=== PATIENT | male | born 1960 | race Caucasian/White ===

== ENCOUNTER 2018-04-01 19:07 | Emergency (ER) | payer OTHER | END 2018-04-01 19:59 | disposition home or self-care (01) | LOC: EDH 19:07 | DX: R00.1 Bradycardia, unspecified (principal); F25.9 Schizoaffective disorder, unspecified; Z72.0 Tobacco use | CPT/HCPCS: 93005 ==

== ENCOUNTER 2018-05-30 11:41 | Emergency (ER) | payer OTHER ==
[2018-05-30] MEDS ORDERED: SODIUM CHLORIDE 0.9% 1000ML 1,000 ML IV ONE (12:22)
[2018-05-30 12:24] LABS: BASOPHILS % (AUTO) 0.6 % (0.0-5.0); EOSINOPHILS % (AUTO) 4.7 % (0.0-8.0); HEMATOCRIT 41.7 % (42-54); MEAN CORPUSCULAR HEMOGLOBIN 30.7 pg (27.0-33.0); MEAN CORPUSCULAR HGB CONC 33.7 g/dL (32.0-36.0); MEAN CORPUSCULAR VOLUME 91.2 fL (79-99); MONOCYTES % (AUTO) 13.1 % (3.0-13.0); NEUTROPHILS % (AUTO) 69.6 % (40.0-77.0); PLATELET COUNT (AUTO) 251 K/uL (130-400); RED BLOOD CELL COUNT(AUTO) 4.57 MIL/uL (4.50-6.20); RED CELL DISTRIBUTION WIDTH 14.1 % (11.0-15.5); WHITE BLOOD COUNT (AUTO) 13.3 K/uL (4.8-10.8)
[2018-05-30 12:45] LABS: POTASSIUM 3.8 mmol/L (3.5-5.1)
[2018-05-30 12:50] LABS: ALBUMIN 3.7 g/dL (3.5-5.0); BILIRUBIN,DIRECT 0.1 mg/dL (0.0-0.3); BILIRUBIN,TOTAL 0.3 mg/dL (0.2-1.0); TOTAL PROTEIN, SERUM 7.4 g/dL (6.0-8.3)
[2018-05-30 13:10] LABS: AMPHET/METH SCREEN,URINE NEGATIVE (NEGATIVE); BARBITURATE SCREEN, URINE NEGATIVE (NEGATIVE); BENZODIAZEPINES SCREEN,URINE POSITIVE (NEGATIVE); CANNABINOID SCREEN,URINE NEGATIVE (NEGATIVE); COCAINE SCREEN,URINE NEGATIVE (NEGATIVE); OPIATE SCREEN,URINE NEGATIVE (NEGATIVE); PHENCYCLIDINE SCREEN,URINE NEGATIVE (NEGATIVE)
== END 2018-05-30 14:48 | disposition home or self-care (01) ==
LOC: EDH 11:41
DX: K52.9 Noninfective gastroenteritis and colitis, unspecified (principal); E78.5 Hyperlipidemia, unspecified; I10 Essential (primary) hypertension; J44.9 Chronic obstructive pulmonary disease, unspecified; Z87.891 Personal history of nicotine dependence
CPT/HCPCS: 36415; 74021; 80048; 80076; 80305; 85025; 96360; 99284; J7030

== ENCOUNTER → 2018-11-16 | Outpatient (CLI) | payer OTHER | END | disposition home or self-care (01) | LOC: RAH 08:55 | PROVIDERS: ATTEND Internal Medicine Cardiovascular Disease | DX: I51.7 Cardiomegaly (principal) | CPT/HCPCS: 93306 ==

== ENCOUNTER 2018-12-08 11:23 | Emergency (ER) | payer OTHER ==
[2018-12-08 11:49] LABS: APPEARANCE,URINE Clear (CLEAR); BILIRUBIN,URINE Negative (NEGATIVE); COLOR,URINE Yellow (YELLOW); GLUCOSE, URINE (UA) Negative (NEGATIVE); KETONES,URINE Negative (NEGATIVE); LEUKOCYTE ESTERASE ,URINE Negative (NEGATIVE); NITRATE,URINE Negative (NEGATIVE); OCCULT BLOOD,URINE Negative (NEGATIVE); PH,URINE 5.5 (5.0-8.0); PROTEIN,URINE Negative (NEGATIVE)
[2018-12-08 11:56] LABS: AMPHET/METH SCREEN,URINE NEGATIVE (NEGATIVE); BARBITURATE SCREEN, URINE NEGATIVE (NEGATIVE); BENZODIAZEPINES SCREEN,URINE NEGATIVE (NEGATIVE); CANNABINOID SCREEN,URINE NEGATIVE (NEGATIVE); COCAINE SCREEN,URINE NEGATIVE (NEGATIVE); OPIATE SCREEN,URINE NEGATIVE (NEGATIVE); PHENCYCLIDINE SCREEN,URINE NEGATIVE (NEGATIVE)
[2018-12-08 12:19] LABS: CARBON DIOXIDE 29 mmol/L (21-32); CHLORIDE 99 mmol/L (101-111); CREATININE 0.9 mg/dL (0.5-1.5); GLOMERULAR FILTR. RATE CALC 92 mL/min (>60); GLUCOSE,RANDOM 158 mg/dL (70-105); POTASSIUM 3.9 mmol/L (3.5-5.1); SODIUM SERUM 140 mmol/L (136-145); UREA NITROGEN, BLOOD 17 mg/dL (7-18)
[2018-12-08 12:23] LABS: ALANINE AMINOTRANSFERASE 70 U/L (12-78); ALBUMIN 3.5 g/dL (3.5-5.0); ALCOHOL, BLOOD 63 mg/dL (0-10); ASPARTATE AMINOTRANSFERASE 79 U/L (10-37); BILIRUBIN,DIRECT 0.2 mg/dL (0.0-0.3); BILIRUBIN,TOTAL 0.4 mg/dL (0.2-1.0); CREATINE KINASE, TOTAL 111 U/L (21-232); SALICYLATE 4.9 mg/dL (2.8-20.0); TOTAL PROTEIN, SERUM 7.2 g/dL (6.0-8.3)
[2018-12-08] MEDS ORDERED: LORAZEPAM 2 MG/ML 1 ML VIAL ONE (12:35)
[2018-12-08 12:36] LABS: BASOPHILS % (AUTO) 0.6 % (0.0-5.0); EOSINOPHILS % (AUTO) 2.3 % (0.0-8.0); HEMATOCRIT 37.8 % (42-54); LYMPHOCYTES % (AUTO) 14.7 % (21.0-51.0); MEAN CORPUSCULAR HGB CONC 33.6 g/dL (32.0-36.0); MEAN CORPUSCULAR VOLUME 89.5 fL (79-99); MONOCYTES % (AUTO) 12.2 % (3.0-13.0); NEUTROPHILS % (AUTO) 70.2 % (40.0-77.0); PLATELET COUNT (AUTO) 200 K/uL (130-400); RED BLOOD CELL COUNT(AUTO) 4.22 MIL/uL (4.50-6.20); RED CELL DISTRIBUTION WIDTH 12.2 % (11.0-15.5); WHITE BLOOD COUNT (AUTO) 8.5 K/uL (4.8-10.8)
[2018-12-08 12:45] LABS: MAGNESIUM 1.7 mg/dL (1.80-2.40)
[2018-12-08 12:50] LABS: ACETAMINOPHEN < 1 mcg/mL (10-29)
[2018-12-08] MEDS ORDERED: IPRATROPIUM/ALBUTEROL SULFATE 3 ML SOLUTION IH ONE (15:35)
== END 2018-12-08 15:53 | disposition home or self-care (01) ==
LOC: EDH 11:23
DX: F10.239 Alcohol dependence with withdrawal, unspecified (principal); J44.9 Chronic obstructive pulmonary disease, unspecified; E78.5 Hyperlipidemia, unspecified; I10 Essential (primary) hypertension; Z98.890 Other specified postprocedural states; Z72.0 Tobacco use
CPT/HCPCS: 36415; 71045; 80048; 80076; 80305; 81003; 82140; 82550; 83735; 84484; 85025; 93005; 94640; 96374; 99285; G0480 ×2; G0481; J2060

== ENCOUNTER 2019-06-23 17:11 | Emergency (ER) | payer OTHER ==
[~2019-06-23 17:11] MED LIST: AEC81 PO; ALBU0.63 IH; AMOX1TAB16 PO; BUDE10.22 IH; CYAN10007 IM; FOLI0.4T2 PO; GUAI400T79 PO; HYDR-3421 PO; LATA7.5D OP; LEVO25TA54 PO; MULT-1278 PO; NICO-776 TD; PARO40TA72 PO; PRED10B PO; QUET400T12 PO; SILD20TA14 PO; SIMV-46 PO; TAMS-1 PO
== END 2019-06-23 18:06 | disposition home or self-care (01) ==
LOC: EDH 17:11
DX: L50.9 Urticaria, unspecified (principal); J44.9 Chronic obstructive pulmonary disease, unspecified; E78.5 Hyperlipidemia, unspecified; I10 Essential (primary) hypertension; Z72.0 Tobacco use
CPT/HCPCS: 99281

== ENCOUNTER 2019-10-16 21:16 | Inpatient (IN) | payer OTHER ==
[~2019-10-16] VITALS: Ht 177.8 cm; Wt 111.2 kg
[~2019-10-16 21:16] MED LIST changes: -GUAI400T79 PO; +GUAI400T94 PO
[2019-10-16 22:06] LABS: BASOPHILS % (AUTO) 0.7 % (0.0-5.0); EOSINOPHILS % (AUTO) 2.6 % (0.0-8.0); LYMPHOCYTES % (AUTO) 18.7 % (21.0-51.0); MEAN CORPUSCULAR HEMOGLOBIN 30.5 pg (27.0-33.0); MEAN CORPUSCULAR HGB CONC 33.5 g/dL (32.0-36.0); MEAN CORPUSCULAR VOLUME 90.9 fL (79-99); MONOCYTES % (AUTO) 15.3 % (3.0-13.0); PLATELET COUNT (AUTO) 266 K/uL (130-400); RED BLOOD CELL COUNT(AUTO) 4.07 MIL/uL (4.50-6.20); RED CELL DISTRIBUTION WIDTH 13.2 % (11.0-15.5); WHITE BLOOD COUNT (AUTO) 13.8 K/uL (4.8-10.8)
[2019-10-16 22:14] LABS: CREATININE 0.8 mg/dL (0.5-1.5); POTASSIUM 3.8 mmol/L (3.5-5.1)
[2019-10-16 22:19] LABS: ALBUMIN 3.2 g/dL (3.5-5.0); BILIRUBIN,TOTAL 0.3 mg/dL (0.2-1.0); TOTAL PROTEIN, SERUM 7.6 g/dL (6.0-8.3)
[2019-10-16 22:30] LABS: RAPID GROUP A STREP NEGATIVE (NEGATIVE)
[2019-10-16 23:07] LABS: APPEARANCE,URINE Clear (CLEAR); BILIRUBIN,URINE Negative (NEGATIVE); COLOR,URINE Yellow (YELLOW); GLUCOSE, URINE (UA) Negative (NEGATIVE); KETONES,URINE Negative (NEGATIVE); LEUKOCYTE ESTERASE ,URINE Negative (NEGATIVE); NITRATE,URINE Negative (NEGATIVE); OCCULT BLOOD,URINE Negative (NEGATIVE); PH,URINE 5.5 (5.0-8.0); PROTEIN,URINE Negative (NEGATIVE)
[2019-10-16] MEDS ORDERED: ZOSYN 3.375GM+NS 50ML 50 ML IV ONE (23:23)
[2019-10-16] MEDS ORDERED: VANCOMYCIN 1GM+NS 250ML 250 ML IV ONE (23:23)
[2019-10-16 23:26] LABS: ERYTHROCYTE SEDIMENTATION RATE 40 MM/HR (0-20)
[2019-10-16] MEDS ORDERED: ALBUTEROL SULFATE 0.083% 2.5 MG/3 ML INH IH ONE (23:41)
[2019-10-16] MEDS ORDERED: IPRATROPIUM 0.5 MG/2.5 ML INH IH ONE (23:41)
[2019-10-16] MEDS ORDERED: ACETAMINOPHEN 325 MG TAB PO PRN ×2 (23:45)
[2019-10-16] MEDS ORDERED: ONDANSETRON HCL 4 MG/2 ML VIAL IV PRN (23:45)
[2019-10-16] MEDS ORDERED: VANCOMYCIN PROTOCOL PER PHARMACY IV SCH (23:45)
[2019-10-17 00:14] LABS: AMPHET/METH SCREEN,URINE POSITIVE (NEGATIVE); BARBITURATE SCREEN, URINE NEGATIVE (NEGATIVE); BENZODIAZEPINES SCREEN,URINE NEGATIVE (NEGATIVE); CANNABINOID SCREEN,URINE NEGATIVE (NEGATIVE); COCAINE SCREEN,URINE POSITIVE (NEGATIVE); OPIATE SCREEN,URINE NEGATIVE (NEGATIVE); PHENCYCLIDINE SCREEN,URINE NEGATIVE (NEGATIVE)
[2019-10-17] MEDS ORDERED: KETOROLAC TROMETHAMINE 15MG/ML ONE (00:31)
--- NOTE | 2019-10-17 03:05 | NUR ---
PT TRANSFERRED FROM ER WITH ROMEO LOERA. VIA STRETCHER. PT AAOx3. PT WALKED TO BED ROOM 227. DENIES PAIN. PT WEARS EYEGLASSES. BED TO LOWEST LEVEL, RAILS UP x2. CALL LIGHT WITHIN REACH. LEFT HAND IV 22G. RIGHT FOREARM TO HAND IS RED AND SWOLLEN, WARM TO TOUCH, FOREARM PRESENTS WITH AN AREA OF BLISTERING, SAME AREA WHERE (METH) NEEDLE WAS INJECTED AND PT STATES NEEDLE IS STUCK IN SKIN. UPPER CHEST, ABDOMEN, UPPER BACK PRESENTS WITH RED SKIN SORES.
--- NOTE | 2019-10-17 03:30 | NUR ---
PT IS ASLEEP. ATTEMPTED MULTIPLE TIMES TO WAKE UP PT FOR ADMISSION QUESTIONS. PT DOES NOT OPEN HIS EYES BUT DOES MAKE MUMBLING SOUNDS. WORDS ARE INCOMPREHENSIBLE.
[2019-10-17] MEDS: INSULIN HUMULIN R 100 UNIT/ML 3ML SQ SCH ×4 (06:28→21:00)
[2019-10-17 07:11] LABS: BASOPHILS % (AUTO) 0.6 % (0.0-5.0); EOSINOPHILS % (AUTO) 3.2 % (0.0-8.0); HEMATOCRIT 36.8 % (42-54); LYMPHOCYTES % (AUTO) 13.4 % (21.0-51.0); MEAN CORPUSCULAR HEMOGLOBIN 30.6 pg (27.0-33.0); MEAN CORPUSCULAR HGB CONC 32.9 g/dL (32.0-36.0); MEAN CORPUSCULAR VOLUME 92.9 fL (79-99); MONOCYTES % (AUTO) 13.2 % (3.0-13.0); NEUTROPHILS % (AUTO) 68.8 % (40.0-77.0); PLATELET COUNT (AUTO) 233 K/uL (130-400); RED BLOOD CELL COUNT(AUTO) 3.96 MIL/uL (4.50-6.20); RED CELL DISTRIBUTION WIDTH 13.5 % (11.0-15.5); WHITE BLOOD COUNT (AUTO) 10.1 K/uL (4.8-10.8)
[2019-10-17 07:22] LABS: CREATININE 0.9 mg/dL (0.5-1.5); POTASSIUM 3.4 mmol/L (3.5-5.1)
[2019-10-17 08:30] VITALS: BP 120/78
[2019-10-17] MEDS: ZOSYN 3.375GM+NS 50ML 50 ML IV SCH ×2 (09:13→16:17)
[2019-10-17] MEDS: FAMOTIDINE 20MG TAB 20 MG TAB PO SCH ×2 (09:13→21:00)
[2019-10-17] MEDS: ENOXAPARIN SODIUM 40 MG/0.4 ML SYRINGE SQ SCH (09:15)
--- NOTE | 2019-10-17 10:39 | NUR ---
DR. CRUZ MADE AWARE OF PENDING CONSULT
[2019-10-17] MEDS ORDERED: PHARMACY COMMUNICATION MISC SCH (11:30)
[2019-10-17 12:43] VITALS: BP 118/75
[2019-10-17] MEDS ORDERED: COMPOUND IV REFRIGERATED 1 EACH IVSOLN MISC PRN (12:45)
[2019-10-17] MEDS ORDERED: VANCOMYCIN 2 GM in SODIUM CHLORIDE 0.9% 500ML 500 ML IV ONE (13:00)
[2019-10-17] MEDS: KETOROLAC TROMETHAMINE 15MG/ML IV PRN (14:43)
--- NOTE | 2019-10-17 15:30 | NUR ---
YA PLAN PATIENT IN COVID UNIT NOT ABLE TO SEE PATIENT. CALLED NO ANSWER ON PHONE. KEREN WILL CONTINUE TO FOLLOW. Addendum: 10/17/19 at 1531 by VALENTINA RUIZ RN CM Amended: Links added.
[2019-10-17 16:35] VITALS: BP 123/82
[2019-10-17 19:43] VITALS: BP 120/79
--- NOTE | 2019-10-17 20:35 | NUR ---
NEW ORDER SPOKE TO BIANCA OSBORNE ORDERED POTASSIUM PROTOCOL. MEDS WERE RECONCILED BY ROMEO GAN. DYLON WILL CONTINUE NECESSARY MEDICATIONS FOR PT.
[2019-10-17] MEDS ORDERED: ALBUTEROL SULFATE IH PRN (20:45)
[2019-10-17] MEDS: SIMVASTATIN 20 MG TABLET PO SCH (21:00)
[2019-10-17] MEDS: SYMBICORT 80-4.5 MCG INHALER IH SCH (21:00)
[2019-10-17] MEDS: LATANOPROST 2.5 ML DROPS OU SCH (21:00)
[2019-10-17] MEDS: QUETIAPINE FUMARATE 100 MG TAB PO SCH (21:00)
[2019-10-17] MEDS ORDERED: POTASSIUM CHLORIDE 20MEQ/100ML 100 ML IV PRN (21:30)
[2019-10-17] MEDS ORDERED: POTASSIUM CHLORIDE 20 MEQ ERTAB PO PRN (21:30)
[2019-10-17] MEDS ORDERED: LIDOCAINE HCL-MPF 1% 2ML VIAL IJ PRN (21:30)
--- NOTE | 2019-10-17 21:30 | NUR ---
NOTIFIED BIANCA OSBORNE PT STATING HE ALREADY TOOK HIS OWN HOME MEDS. PT IS UPSET AND YELLING THAT NURSES KEPT LAUGHING ALL DAY AND KEPT HIM AWAKE. REQUEST TO SHOWER. PT IS WALKING AROUND ROOM BUT WAS NOTICED TO HAVE UNSTEADY GAIT. PT STATES HE FEELS DIZZY BECAUSE OF HIS MEDICATIONS THAT HE TOOK. PT WILL NOT SHOWER D/T NOT BEING SAFE FOR HIM, PT AGREED AND LAID BACK INTO BED. PT STATES HE JUST WANTS TO SLEEP SINCE NOBODY HAS LET HIM SLEEP ALL DAY OR LAST NIGHT. PT MOODS CHANGE QUICKLY FROM BEING UPSET TO BEING POLITE. VINH PCP, WILL RETAKE NEW VITALS FOR PT.
--- NOTE | 2019-10-17 21:35 | NUR ---
VITALS BP114/71 O295% AT ROOM AIR. PULSE 75 PT IS LAYING IN BED WITH EYES CLOSED. STATED BY VINH,PCP PT IS TRYING TO TALK BUT IS NOT MAKING SENSE. HIS WORDS ARE NOT CLEAR AND IS MUMBLING HIS WORDS.
[2019-10-17] MEDS: POTASSIUM CHLORIDE 10% ELIXIR 20 MEQ/15 ML UDCUP PO PRN (23:20)
[2019-10-17] MEDS: VANCOMYCIN 1.5 GM in SODIUM CHLORIDE 0.9% 250 ML IV SCH (23:23)
[2019-10-17 23:36] VITALS: BP 119/75
[2019-10-18] MEDS: ZOSYN 3.375GM+NS 50ML 50 ML IV SCH ×3 (01:54→17:15)
[2019-10-18] MEDS: POTASSIUM CHLORIDE 10% ELIXIR 20 MEQ/15 ML UDCUP PO PRN (01:54)
[2019-10-18 03:46] VITALS: BP 121/75
[2019-10-18] MEDS: INSULIN HUMULIN R 100 UNIT/ML 3ML SQ SCH ×4 (07:30→19:59)
[2019-10-18] MEDS: ENOXAPARIN SODIUM 40 MG/0.4 ML SYRINGE SQ SCH (08:30)
[2019-10-18] MEDS: FOLIC ACID 1 MG TABLET PO SCH (08:31)
[2019-10-18] MEDS: MULTIVITAMIN WITH MINERALS TABLET PO SCH (08:31)
[2019-10-18] MEDS: NICOTINE 21 MG/ 24 HR PATCH TD SCH (08:31)
[2019-10-18] MEDS: TAMSULOSIN HCL 0.4 MG CAP.ER.24H PO SCH (08:31)
[2019-10-18] MEDS: FAMOTIDINE 20MG TAB 20 MG TAB PO SCH ×2 (08:31→20:05)
[2019-10-18] MEDS: ASPIRIN 81 MG EC TAB PO SCH (08:31)
[2019-10-18] MEDS: SYMBICORT 80-4.5 MCG INHALER IH SCH ×2 (08:32→20:06)
[2019-10-18] MEDS: PAROXETINE HCL 20 MG TABLET PO SCH (08:32)
[2019-10-18 08:51] VITALS: BP 129/85
[2019-10-18 12:21] LABS: BASOPHILS % (AUTO) 0.5 % (0.0-5.0); EOSINOPHILS % (AUTO) 4.1 % (0.0-8.0); MEAN CORPUSCULAR HEMOGLOBIN 30.4 pg (27.0-33.0); MEAN CORPUSCULAR HGB CONC 32.4 g/dL (32.0-36.0); MEAN CORPUSCULAR VOLUME 93.7 fL (79-99); MONOCYTES % (AUTO) 11.3 % (3.0-13.0); NEUTROPHILS % (AUTO) 71.3 % (40.0-77.0); PLATELET COUNT (AUTO) 272 K/uL (130-400); RED BLOOD CELL COUNT(AUTO) 3.95 MIL/uL (4.50-6.20); RED CELL DISTRIBUTION WIDTH 13.3 % (11.0-15.5); WHITE BLOOD COUNT (AUTO) 9.8 K/uL (4.8-10.8)
[2019-10-18] MEDS: VANCOMYCIN 1.5 GM in SODIUM CHLORIDE 0.9% 250 ML IV SCH (12:51)
[2019-10-18 13:23] LABS: ERYTHROCYTE SEDIMENTATION RATE 46 MM/HR (0-20)
[2019-10-18 13:27] VITALS: BP 146/89
--- NOTE | 2019-10-18 13:53 | NUR ---
DC PLAN CALLED PATIENT ROOM. PATIENT ANSWERED. PATIENT LIVES WITH SPOUSE. INDEPENDENT ABLE TO PERFORM ADL'S. PATIENT HAS NO SERVICES OR DME'S. FEELS SAFE TO RETURN HOME. WANTED TO LEAVE TODAY. ASKED PATIENT IF NEEDLE IN ARM HAD BEEN REMOVED SAID NO IT HAS NOT. WILL LIKELY NEED TO STAY FOR COVID RESULTS THEN REMOVAL OF FOREIGN OBJECT IN ARM. Addendum: 10/18/19 at 1355 by VALENTINA RUIZ RN CM Amended: Links added.
[2019-10-18 16:33] VITALS: BP 138/91
[2019-10-18] MEDS ORDERED: TEMAZEPAM 7.5 MG CAPSULE PO ONE (19:45)
[2019-10-18] MEDS: QUETIAPINE FUMARATE 100 MG TAB PO SCH (20:05)
[2019-10-18] MEDS: SIMVASTATIN 20 MG TABLET PO SCH (20:05)
[2019-10-18] MEDS: LATANOPROST 2.5 ML DROPS OU SCH (20:06)
[2019-10-18 20:27] VITALS: BP 135/83
[2019-10-18 23:30] VITALS: BP 128/77
[2019-10-19] VITALS (7 sets, daily range): BP systolic 122–150; BP diastolic 56–99
[2019-10-19] MEDS: ZOSYN 3.375GM+NS 50ML 50 ML IV SCH ×3 (00:35→20:45)
[2019-10-19] MEDS: VANCOMYCIN 1.5 GM in SODIUM CHLORIDE 0.9% 250 ML IV SCH ×3 (01:30→19:44)
[2019-10-19 05:35] LABS: BASOPHILS % (AUTO) 0.6 % (0.0-5.0); EOSINOPHILS % (AUTO) 4.6 % (0.0-8.0); HEMATOCRIT 37.2 % (42-54); LYMPHOCYTES % (AUTO) 16.3 % (21.0-51.0); MEAN CORPUSCULAR HEMOGLOBIN 30.3 pg (27.0-33.0); MEAN CORPUSCULAR HGB CONC 32.5 g/dL (32.0-36.0); MONOCYTES % (AUTO) 11.4 % (3.0-13.0); NEUTROPHILS % (AUTO) 66.4 % (40.0-77.0); PLATELET COUNT (AUTO) 280 K/uL (130-400); RED CELL DISTRIBUTION WIDTH 13.3 % (11.0-15.5); WHITE BLOOD COUNT (AUTO) 10.7 K/uL (4.8-10.8)
[2019-10-19 06:13] LABS: BILIRUBIN,TOTAL 0.3 mg/dL (0.2-1.0); PHOSPHORUS 3.9 mg/dL (2.5-4.9); POTASSIUM 3.8 mmol/L (3.5-5.1); TOTAL PROTEIN, SERUM 7.3 g/dL (6.0-8.3)
[2019-10-19] MEDS: INSULIN HUMULIN R 100 UNIT/ML 3ML SQ SCH ×2 (06:25→20:52)
[2019-10-19 06:30] LABS: CRP QUANTITATIVE 47.7 mg/L (0.00-9.0)
[2019-10-19 06:52] LABS: ERYTHROCYTE SEDIMENTATION RATE 50 MM/HR (0-20)
[2019-10-19] MEDS: SYMBICORT 80-4.5 MCG INHALER IH SCH ×2 (09:00→21:35)
[2019-10-19] MEDS: ENOXAPARIN SODIUM 40 MG/0.4 ML SYRINGE SQ SCH (09:22)
[2019-10-19] MEDS: FOLIC ACID 1 MG TABLET PO SCH (09:23)
[2019-10-19] MEDS: MULTIVITAMIN WITH MINERALS TABLET PO SCH (09:23)
[2019-10-19] MEDS: ASPIRIN 81 MG EC TAB PO SCH (09:23)
[2019-10-19] MEDS: NICOTINE 21 MG/ 24 HR PATCH TD SCH (09:23)
[2019-10-19] MEDS: FAMOTIDINE 20MG TAB 20 MG TAB PO SCH ×2 (09:23→20:42)
[2019-10-19] MEDS: TAMSULOSIN HCL 0.4 MG CAP.ER.24H PO SCH (09:23)
[2019-10-19] MEDS: PAROXETINE HCL 20 MG TABLET PO SCH (09:23)
--- NOTE | 2019-10-19 13:17 | NUR ---
DC PLAN SPOKE TO DR. VILLAR REGARDING [facility]. SAID TO CONSULT DR. SHAY TO SEE LENGTH OF NEED FOR ABX. PATIENT WORRIED ABOUT . STILL PENDING COVID RESULTS AND DR. CRUZ TO REMOVE NEEDLE FROM ARM. Addendum: 10/19/19 at 1320 by VALENTINA RUIZ RN CM Amended: Links added.
[2019-10-19] MEDS ORDERED: DIPH,PERTUSS(ACELL),TET VAC/PF 0.5 ML VIAL IM ONE (14:15)
[2019-10-19 16:03] LABS: INR 0.92 (0.85-1.15); PARTIAL THROMBOPLASTIN TIME 28.5 SEC (26.3-35.5)
[2019-10-19] MEDS: SIMVASTATIN 20 MG TABLET PO SCH (20:42)
[2019-10-19] MEDS: QUETIAPINE FUMARATE 100 MG TAB PO SCH (20:42)
[2019-10-19] MEDS ORDERED: TEMAZEPAM 7.5 MG CAPSULE PO ONE ×2 (21:30)
[2019-10-19] MEDS: LATANOPROST 2.5 ML DROPS OU SCH (21:35)
[2019-10-20] MEDS: VANCOMYCIN 1.5 GM in SODIUM CHLORIDE 0.9% 250 ML IV SCH ×2 (01:00→12:13)
[2019-10-20 05:17] VITALS: BP 135/90
[2019-10-20] MEDS: INSULIN HUMULIN R 100 UNIT/ML 3ML SQ SCH ×4 (05:59→20:54)
[2019-10-20] MEDS: NICOTINE 21 MG/ 24 HR PATCH TD SCH (07:42)
[2019-10-20] MEDS: PAROXETINE HCL 20 MG TABLET PO SCH (07:42)
[2019-10-20] MEDS: FAMOTIDINE 20MG TAB 20 MG TAB PO SCH ×2 (07:43→20:33)
[2019-10-20] MEDS: FOLIC ACID 1 MG TABLET PO SCH (07:43)
[2019-10-20] MEDS: ENOXAPARIN SODIUM 40 MG/0.4 ML SYRINGE SQ SCH (07:43)
[2019-10-20] MEDS: TAMSULOSIN HCL 0.4 MG CAP.ER.24H PO SCH (07:43)
[2019-10-20] MEDS: MULTIVITAMIN WITH MINERALS TABLET PO SCH (07:43)
[2019-10-20] MEDS: ASPIRIN 81 MG EC TAB PO SCH (07:43)
[2019-10-20] MEDS: SYMBICORT 80-4.5 MCG INHALER IH SCH ×2 (07:44→20:33)
[2019-10-20] MEDS: ZOSYN 3.375GM+NS 50ML 50 ML IV SCH ×2 (07:44→15:39)
[2019-10-20 08:00] VITALS: BP 116/79
[2019-10-20 11:51] VITALS: BP 121/57
[2019-10-20] MEDS: KETOROLAC TROMETHAMINE 15MG/ML IV PRN (13:31)
--- NOTE | 2019-10-20 14:02 | NUR ---
DC PLAN SPOKE TO PATIENT SEVERAL TIMES. HE HAS BEEN GOING BACK AND FORTH REGARDING DC PLAN. AT 1350 ON 10/20/2019 PATIENT ASKED TO SPEAK TO CM SAID NO TO [facility]. WANTS TO TRY TO PO ABX AT HOME. SAYS HE HAS TO SEE AND GET LOAN TO PAY BILLS. SAYS HE HAS BEEN TO [facility] BEFORE. WILL KEEP AN EYE OUT ON HIS ARM AND FOLLOW UP WITH MD IF IT LOOKS WORSE. 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 DID NOT APPEAR READY TO STOP. SAID HE IS THINKING ABOUT IT. Addendum: 10/20/19 at 1404 by VALENTINA RUIZ RN CM Amended: Links added.
--- NOTE | 2019-10-20 14:20 | NUR ---
CALLED DR. LOPEZ' OFFICE FOR NEW CONSULT. SPOKE WITH KINSEY. AWAITING 'S CALLBACK.
[2019-10-20 16:00] VITALS: BP 138/89
--- NOTE | 2019-10-20 17:37 | NUR ---
DR. LOPEZ IS HERE TO SEE PATIENT.
[2019-10-20] MEDS ORDERED: TEMAZEPAM 7.5 MG CAPSULE PO PRN (17:45)
[2019-10-20 20:25] VITALS: BP 144/97
[2019-10-20] MEDS: LATANOPROST 2.5 ML DROPS OU SCH (20:27)
[2019-10-20] MEDS: CHLORDIAZEPOXIDE HCL 25 MG CAP PO SCH (20:32)
[2019-10-20] MEDS: SIMVASTATIN 20 MG TABLET PO SCH (20:33)
[2019-10-20] MEDS: TEMAZEPAM 15 MG CAPSULE PO PRN (20:33)
[2019-10-20] MEDS: QUETIAPINE FUMARATE 100 MG TAB PO SCH (20:33)
--- NOTE | 2019-10-20 23:55 | NUR ---
patients covid result came back negative, will transfer to room 314 med surg
[2019-10-21] VITALS (7 sets, daily range): BP systolic 112–160; BP diastolic 64–94
[2019-10-21] MEDS: ZOSYN 3.375GM+NS 50ML 50 ML IV SCH ×3 (00:18→16:22)
--- NOTE | 2019-10-21 00:20 | NUR ---
transferred to [facility], pt is stable no complaints of beign in distress or in any forms of pain.
[2019-10-21] MEDS: KETOROLAC TROMETHAMINE 15MG/ML IV PRN ×3 (00:45→16:19)
[2019-10-21] MEDS: VANCOMYCIN 1.5 GM in SODIUM CHLORIDE 0.9% 250 ML IV SCH ×2 (01:21→12:54)
[2019-10-21 05:03] LABS: BASOPHILS % (AUTO) 0.7 % (0.0-5.0); EOSINOPHILS % (AUTO) 3.8 % (0.0-8.0); HEMATOCRIT 36.1 % (42-54); LYMPHOCYTES % (AUTO) 17.8 % (21.0-51.0); MEAN CORPUSCULAR HEMOGLOBIN 29.8 pg (27.0-33.0); MEAN CORPUSCULAR HGB CONC 32.4 g/dL (32.0-36.0); MEAN CORPUSCULAR VOLUME 91.9 fL (79-99); PLATELET COUNT (AUTO) 280 K/uL (130-400); RED BLOOD CELL COUNT(AUTO) 3.93 MIL/uL (4.50-6.20); RED CELL DISTRIBUTION WIDTH 12.9 % (11.0-15.5); WHITE BLOOD COUNT (AUTO) 10.4 K/uL (4.8-10.8)
[2019-10-21 05:23] LABS: CARBON DIOXIDE 29 mmol/L (21-32); CHLORIDE 105 mmol/L (101-111); CREATININE 0.9 mg/dL (0.5-1.5); GLOMERULAR FILTR. RATE CALC 91 mL/min (>60); GLUCOSE,RANDOM 103 mg/dL (70-105); PHOSPHORUS 4.6 mg/dL (2.5-4.9); POTASSIUM 3.7 mmol/L (3.5-5.1); SODIUM SERUM 141 mmol/L (136-145); UREA NITROGEN, BLOOD 16 mg/dL (7-18)
[2019-10-21] MEDS: INSULIN HUMULIN R 100 UNIT/ML 3ML SQ SCH ×4 (07:30→21:00)
--- NOTE | 2019-10-21 07:50 | NUR ---
DR. CRUZ AWARE OF PT'S NEGATIVE FOR COVID NO NEW ORDERS GIVEN
[2019-10-21] MEDS: SYMBICORT 80-4.5 MCG INHALER IH SCH ×2 (09:00→20:05)
[2019-10-21] MEDS: NICOTINE 21 MG/ 24 HR PATCH TD SCH (09:45)
--- NOTE | 2019-10-21 12:30 | NUR ---
DR. CRUZ SPOKE TO DR. CRUZ VIA TELEPHONE REGARDING PATIENTS NPO STATUS. REPLIED OKAY TO FEED PATIENT BECAUSE NO PLAN FOR SURGERY TODAY.
[2019-10-21] MEDS: ENOXAPARIN SODIUM 40 MG/0.4 ML SYRINGE SQ SCH (12:47)
[2019-10-21] MEDS: TAMSULOSIN HCL 0.4 MG CAP.ER.24H PO SCH (12:55)
[2019-10-21] MEDS: ASPIRIN 81 MG EC TAB PO SCH (12:55)
[2019-10-21] MEDS: FAMOTIDINE 20MG TAB 20 MG TAB PO SCH ×2 (12:55→20:07)
[2019-10-21] MEDS: FOLIC ACID 1 MG TABLET PO SCH (12:55)
[2019-10-21] MEDS: MULTIVITAMIN WITH MINERALS TABLET PO SCH (12:55)
[2019-10-21] MEDS: PAROXETINE HCL 20 MG TABLET PO SCH (12:55)
[2019-10-21] MEDS: CHLORDIAZEPOXIDE HCL 25 MG CAP PO SCH ×2 (12:56→20:07)
--- NOTE | 2019-10-21 16:15 | NUR ---
DR. FELIX HERE TO SEE PATIENT. EVALUATED RUE. DR. FELIX TOLD PATIENT PLAN FOR POSSIBLE SURGICAL REMOVAL OF FOREIGN BODY LOCATED IN RIGHT FOREARM ON Wednesday10/23/2019. I ASKED DR. FELIX IF SHE WANTED ME TO ENTER ORDER TO SCHEDULE PROCEDURE FOR WEDNESDAY AND MD REPLIED NO, THAT SHE WOULD FOLLOW-UP TOMORROW WITH RESULTS OF RIGHT HAND US RESULTS FIRST.
[2019-10-21] MEDS: SIMVASTATIN 20 MG TABLET PO SCH (20:07)
[2019-10-21] MEDS: TEMAZEPAM 15 MG CAPSULE PO PRN (20:07)
[2019-10-21] MEDS: QUETIAPINE FUMARATE 100 MG TAB PO SCH (20:07)
[2019-10-21] MEDS: LATANOPROST 2.5 ML DROPS OU SCH (20:11)
[2019-10-22] MEDS: VANCOMYCIN 1.5 GM in SODIUM CHLORIDE 0.9% 250 ML IV SCH ×2 (01:10→13:09)
[2019-10-22] MEDS: ZOSYN 3.375GM+NS 50ML 50 ML IV SCH ×3 (01:10→15:32)
[2019-10-22 03:00] VITALS: BP 113/70
[2019-10-22] MEDS: INSULIN HUMULIN R 100 UNIT/ML 3ML SQ SCH ×4 (05:55→20:17)
[2019-10-22 07:17] VITALS: BP 116/73
[2019-10-22] MEDS: NICOTINE 21 MG/ 24 HR PATCH TD SCH (07:55)
[2019-10-22] MEDS: MULTIVITAMIN WITH MINERALS TABLET PO SCH (07:55)
[2019-10-22] MEDS: TAMSULOSIN HCL 0.4 MG CAP.ER.24H PO SCH (07:56)
[2019-10-22] MEDS: CHLORDIAZEPOXIDE HCL 25 MG CAP PO SCH ×2 (07:56→20:24)
[2019-10-22] MEDS: ASPIRIN 81 MG EC TAB PO SCH (07:56)
[2019-10-22] MEDS: FAMOTIDINE 20MG TAB 20 MG TAB PO SCH ×2 (07:56→20:21)
[2019-10-22] MEDS: PAROXETINE HCL 20 MG TABLET PO SCH (07:56)
[2019-10-22] MEDS: FOLIC ACID 1 MG TABLET PO SCH (07:56)
[2019-10-22] MEDS: ENOXAPARIN SODIUM 40 MG/0.4 ML SYRINGE SQ SCH (07:57)
[2019-10-22] MEDS: KETOROLAC TROMETHAMINE 15MG/ML IV PRN ×2 (07:58→21:20)
[2019-10-22] MEDS: SYMBICORT 80-4.5 MCG INHALER IH SCH ×2 (09:00→20:28)
--- NOTE | 2019-10-22 10:00 | NUR ---
dr jason here to see patient; she discussed with patient taking him to surgery tomorrow to remove foreign object from right arm and he is in agreement, she gave me verbal orders for procedure; i have entered order for consent and faxed it to boiler house inspector amarjit and called her to make her aware; i have also entered a npo at [facility] order.
[2019-10-22 10:50] VITALS: BP 123/87
[2019-10-22] MEDS: GABAPENTIN 100 MG CAPSULE PO SCH ×2 (13:09→20:24)
[2019-10-22] MEDS: ACETAMINOPHEN 325 MG TAB PO PRN ×2 (13:10→20:24)
[2019-10-22] MEDS: LACTULOSE 20 GM/30 ML UDCUP PO PRN (14:51)
--- NOTE | 2019-10-22 15:16 | NUR ---
pt signed consent for surgery tomorrow and only question he had was aboiut what typeof anesthesia he would have; i told him anesthesiologist would see him tomorrow am prior to the surgery and go over with him his options.
[2019-10-22 15:49] VITALS: BP 138/97
[2019-10-22] MEDS: IPRATROPIUM/ALBUTEROL SULFATE 3 ML SOLUTION IH SCH ×2 (18:46→23:27)
[2019-10-22] MEDS: QUETIAPINE FUMARATE 100 MG TAB PO SCH (20:21)
[2019-10-22] MEDS: SIMVASTATIN 20 MG TABLET PO SCH (20:21)
[2019-10-22 20:22] VITALS: BP 121/83
[2019-10-22] MEDS: LATANOPROST 2.5 ML DROPS OU SCH (20:24)
[2019-10-22] MEDS: TEMAZEPAM 15 MG CAPSULE PO PRN (21:20)
[2019-10-22 23:56] VITALS: BP 99/62
[2019-10-23] VITALS (17 sets, daily range): BP systolic 107–131; BP diastolic 58–78
[2019-10-23] MEDS: ZOSYN 3.375GM+NS 50ML 50 ML IV SCH ×3 (01:31→18:11)
[2019-10-23] MEDS: VANCOMYCIN 1.5 GM in SODIUM CHLORIDE 0.9% 250 ML IV SCH ×2 (01:31→13:13)
[2019-10-23] MEDS: INSULIN HUMULIN R 100 UNIT/ML 3ML SQ SCH ×4 (06:04→20:33)
[2019-10-23] MEDS: IPRATROPIUM/ALBUTEROL SULFATE 3 ML SOLUTION IH SCH ×4 (06:26→23:17)
[2019-10-23] MEDS ORDERED: SODIUM CHLORIDE 0.9% 1000ML 1,000 ML IV ONE (08:22)
[2019-10-23] MEDS: FAMOTIDINE 20MG TAB 20 MG TAB PO SCH ×2 (09:00→20:35)
[2019-10-23] MEDS: ENOXAPARIN SODIUM 40 MG/0.4 ML SYRINGE SQ SCH (09:00)
[2019-10-23] MEDS: SYMBICORT 80-4.5 MCG INHALER IH SCH ×2 (09:00→20:36)
[2019-10-23] MEDS ORDERED: CHLORDIAZEPOXIDE HCL 25 MG CAP PO ONE (09:00)
[2019-10-23] MEDS ORDERED: MIDAZOLAM HCL 1 MG/ML 2ML VIAL ONE (09:02)
[2019-10-23] MEDS ORDERED: PROPOFOL 10 MG/ML 20ML VIAL IV ONE ×2 (09:02→09:56)
[2019-10-23] MEDS ORDERED: LIDOCAINE PF 2% 5ML ABBOJECT ONE (09:02)
[2019-10-23] MEDS ORDERED: FENTANYL CITRATE PF 50 MCG/1 ML 2ML VIAL ONE (09:17)
[2019-10-23] MEDS ORDERED: LIDOCAINE HCL 1% 20 ML VIAL ONE (09:25)
[2019-10-23] MEDS ORDERED: BUPIVACAINE/EPI/PF 0.5% 30ML VIAL IJ ONE (09:25)
[2019-10-23] MEDS ORDERED: CEFAZOLIN SODIUM 1 GM VIAL ONE (09:26)
[2019-10-23] MEDS: NICOTINE 21 MG/ 24 HR PATCH TD SCH (11:26)
[2019-10-23] MEDS: ASPIRIN 81 MG EC TAB PO SCH (11:27)
[2019-10-23] MEDS: FOLIC ACID 1 MG TABLET PO SCH (11:27)
[2019-10-23] MEDS: MULTIVITAMIN WITH MINERALS TABLET PO SCH (11:27)
[2019-10-23] MEDS: TAMSULOSIN HCL 0.4 MG CAP.ER.24H PO SCH (11:27)
[2019-10-23] MEDS: CHLORDIAZEPOXIDE HCL 25 MG CAP PO SCH ×2 (11:27→20:35)
[2019-10-23] MEDS: PAROXETINE HCL 20 MG TABLET PO SCH (11:27)
[2019-10-23] MEDS: KETOROLAC TROMETHAMINE 15MG/ML IV PRN (11:29)
[2019-10-23] MEDS: GABAPENTIN 100 MG CAPSULE PO SCH ×3 (11:44→20:35)
[2019-10-23] MEDS: HYDROMORPHONE 1 MG/1 ML AMP IVP PRN ×2 (12:03→18:21)
--- NOTE | 2019-10-23 16:20 | NUR ---
Nutrition Intervention: Nutrition screen based on LOS x 7 days. Pt. S/P Foreign body extraction right forearm/removal of foreign body(10/23/19). Pt. on Heart Healthy diet. Pt. reports eating <50% of his meals; states decreased appetite due to arm pain. Discussed nutritional supplementations with pt. and pt. agreed to try. Labs reviewed(BG 84, alb 3.0). SR-22, elastic. LBM: 10/22/2019, per pt. BMI: 35.2, Obesity Grade 2. Recommendations: 1) Rec. Chocolate Ensure BID with B'fast and dinner meals. 2) Continue to monitor pt's nutritional status. 3) Consult RD as nutrition concerns arise. Addendum: 10/23/19 at [address] Amended: Links added.
[2019-10-23] MEDS: LACTULOSE 20 GM/30 ML UDCUP PO PRN (20:33)
[2019-10-23] MEDS: QUETIAPINE FUMARATE 100 MG TAB PO SCH (20:34)
[2019-10-23] MEDS: LATANOPROST 2.5 ML DROPS OU SCH (20:35)
[2019-10-23] MEDS: SIMVASTATIN 20 MG TABLET PO SCH (20:35)
[2019-10-23] MEDS ORDERED: RENAL DOSE IV PRN (21:00)
[2019-10-23] MEDS: TEMAZEPAM 15 MG CAPSULE PO PRN (21:17)
[2019-10-24] MEDS: ZOSYN 3.375GM+NS 50ML 50 ML IV SCH ×2 (00:30→05:10)
[2019-10-24] MEDS: VANCOMYCIN 1.5 GM in SODIUM CHLORIDE 0.9% 250 ML IV SCH (00:32)
[2019-10-24] MEDS: HYDROMORPHONE 1 MG/1 ML AMP IVP PRN (00:48)
[2019-10-24 03:26] VITALS: BP_SYST 110; BP_SYST 135; BP_DIAS 74; BP_DIAS 81
[2019-10-24] MEDS: KETOROLAC TROMETHAMINE 15MG/ML IV PRN ×2 (05:10→12:40)
[2019-10-24] MEDS: INSULIN HUMULIN R 100 UNIT/ML 3ML SQ SCH ×2 (05:33→11:08)
[2019-10-24 06:12] LABS: BASOPHILS % (AUTO) 0.5 % (0.0-5.0); EOSINOPHILS % (AUTO) 3.4 % (0.0-8.0); HEMATOCRIT 34.4 % (42-54); LYMPHOCYTES % (AUTO) 18.5 % (21.0-51.0); MEAN CORPUSCULAR HEMOGLOBIN 29.5 pg (27.0-33.0); MEAN CORPUSCULAR VOLUME 92.2 fL (79-99); MONOCYTES % (AUTO) 11.3 % (3.0-13.0); NEUTROPHILS % (AUTO) 65.7 % (40.0-77.0); PLATELET COUNT (AUTO) 84 K/uL (130-400); RED BLOOD CELL COUNT(AUTO) 3.73 MIL/uL (4.50-6.20); RED CELL DISTRIBUTION WIDTH 13.1 % (11.0-15.5); WHITE BLOOD COUNT (AUTO) 8.7 K/uL (4.8-10.8)
--- NOTE | 2019-10-24 06:40 | NUR ---
paged hospitalist for patient's potassium of 5.8 this morning. pending call back.
[2019-10-24] MEDS: IPRATROPIUM/ALBUTEROL SULFATE 3 ML SOLUTION IH SCH ×2 (07:08→10:57)
[2019-10-24 07:16] LABS: CREATININE 1.1 mg/dL (0.5-1.5); POTASSIUM 3.8 mmol/L (3.5-5.1)
[2019-10-24 07:56] VITALS: BP 122/69
[2019-10-24] MEDS: FAMOTIDINE 20MG TAB 20 MG TAB PO SCH (09:42)
[2019-10-24] MEDS: ASPIRIN 81 MG EC TAB PO SCH (09:42)
[2019-10-24] MEDS: FOLIC ACID 1 MG TABLET PO SCH (09:43)
[2019-10-24] MEDS: CHLORDIAZEPOXIDE HCL 25 MG CAP PO SCH (09:43)
[2019-10-24] MEDS: MULTIVITAMIN WITH MINERALS TABLET PO SCH (09:43)
[2019-10-24] MEDS: PAROXETINE HCL 20 MG TABLET PO SCH (09:43)
[2019-10-24] MEDS: TAMSULOSIN HCL 0.4 MG CAP.ER.24H PO SCH (09:43)
[2019-10-24] MEDS: GABAPENTIN 100 MG CAPSULE PO SCH (09:43)
[2019-10-24] MEDS: NICOTINE 21 MG/ 24 HR PATCH TD SCH (09:44)
[2019-10-24 11:37] VITALS: BP 135/74
--- NOTE | 2019-10-24 13:48 | NUR ---
PICCLINE REMOVED WITHOUT DIFFICULTY , BLUE TIP INTACT. DRESSING PLACED WITH PRESSURE HELD FOR 15 MIN . NO SIGNS OF BLEEDING OR SWELLING. PATIENT TOLERATED WELL
--- NOTE | 2019-10-24 13:55 | NUR ---
DISCHARGE PATIENT GIVEN DISCHARGE INSTRUCTIONS VIA TEACH BACK. 5FR DOUBLE LUMEN PICC LINE DISCONTINUED BY ROMEO MORRISON. DRESSING TO RIGHT FOREARM CHANGED, INCISION SITES APPROXIMATED WITH 8 SANDY INTACT. REPORT ANY S/S OF INFECTION TO MD. PATIENT INSTRUCTED TO KEEP DRESSINGS CLEAN AND DRY AT ALL TIMES. INSTRUCTED REGARDING APPOINTMENTS WITH DR. SHAY AND DR. FELIX. PATIENT AWARE OF REQUESTING AUTHORIZATION FROM [facility]. PATIENT WILL NEED 150.00 CO-PAY FOR VISIT WITH DR. SHAY. RX GIVEN FOR CEFTIN 500MG PO BID AND DOXYCYCLINE 600MG PO BID X 10 DAYS. PATIENT STABLE AT THIS TIME. PATIENT WHEELED TO [facility] FOR DISCHARGE BY NIKOS VIDAL.
[2019-11-16] MEDS ORDERED: CYANOCOBALAMIN (VITAMIN B-12) 1000 MCG/ML 1ML VIAL IM SCH (09:00)
== END 2019-10-24 14:30 | disposition home or self-care (01) | DRG 580 ==
LOC: EDH 21:16 → EDHIP 23:34 → 2DH 10-17 03:06 → 3CH 10-21
PROVIDERS: ADMIT Internal Medicine; ATTEND Internal Medicine
PROC: 02HV33Z Insertion of Infusion Device into Superior Vena Cava, Percutaneous Approach (ICD-10-PCS; 2019-10-19)
PROC: B548ZZA Ultrasonography of Superior Vena Cava, Guidance (ICD-10-PCS; 2019-10-19)
PROC: 0KC90ZZ Extirpation of Matter from Right Lower Arm and Wrist Muscle, Open Approach (ICD-10-PCS; principal; 2019-10-23 09:15)
PROC: 3E0234Z Introduction of Serum, Toxoid and Vaccine into Muscle, Percutaneous Approach (ICD-10-PCS; 2019-10-23 09:15)
DX: S50.851A Superficial foreign body of right forearm, initial encounter (principal); L03.113 Cellulitis of right upper limb; E11.9 Type 2 diabetes mellitus without complications; E66.01 Morbid (severe) obesity due to excess calories; E78.5 Hyperlipidemia, unspecified; E87.6 Hypokalemia; F14.10 Cocaine abuse, uncomplicated; F15.10 Other stimulant abuse, uncomplicated; F25.9 Schizoaffective disorder, unspecified; I10 Essential (primary) hypertension; J44.9 Chronic obstructive pulmonary disease, unspecified; M19.90 Unspecified osteoarthritis, unspecified site; M65.9 Synovitis and tenosynovitis, unspecified; F10.20 Alcohol dependence, uncomplicated; M79.7 Fibromyalgia; Y90.9 Presence of alcohol in blood, level not specified; F17.210 Nicotine dependence, cigarettes, uncomplicated; Z20.828 Contact with and (suspected) exposure to other viral communicable diseases; Y93.89 Activity, other specified; Y92.89 Other specified places as the place of occurrence of the external cause; Y99.8 Other external cause status; Z68.35 Body mass index [BMI] 35.0-35.9, adult; Z79.899 Other long term (current) drug therapy; Z91.14 Patient's other noncompliance with medication regimen; Z86.19 Personal history of other infectious and parasitic diseases; Z88.8 Allergy status to other drugs, medicaments and biological substances; Z23 Encounter for immunization
CPT/HCPCS: 36415; 71045; 73090; 76882; 80048; 80053; 80202; 80305; 81003; 82948; 83735; 84100; 84132; 84145; 85025; 85610; 85651; 85730; 86140; 87040; 87635; 87804; 87880; 90715; 93971; 94640; 94664; A4606; G0378; G0480; J0690; J1170; J1650; J1885; J2001; J2250; J2543; J2704; J3010; J3370; J3490; J7030; J7040

== ENCOUNTER 2019-12-23 19:55 | Observation (INO) | payer OTHER ==
[~2019-12-23] VITALS: Ht 177.8 cm; Wt 113.9 kg
[~2019-12-23 19:55] MED LIST changes: -AMOX1TAB16 PO; -HYDR-3421 PO; -LATA7.5D OP; +LATA7.5D OU; -LEVO25TA54 PO; -PRED10B PO
[2019-12-23 20:36] LABS: APPEARANCE,URINE Clear (CLEAR); BILIRUBIN,URINE Negative (NEGATIVE); COLOR,URINE Yellow (YELLOW); GLUCOSE, URINE (UA) Negative (NEGATIVE); KETONES,URINE Negative (NEGATIVE); LEUKOCYTE ESTERASE ,URINE Trace (NEGATIVE); NITRATE,URINE Negative (NEGATIVE); OCCULT BLOOD,URINE Negative (NEGATIVE); PROTEIN,URINE Negative (NEGATIVE)
[2019-12-23 20:52] LABS: RBC,URINE 0-1 /HPF (0-1)
[2019-12-23 20:53] LABS: BACTERIA,URINE Rare /HPF (None Seen); SQUAMOUS EPITHELIAL CELL,UR Rare /HPF (0-2)
[2019-12-23] MEDS ORDERED: LORAZEPAM 2 MG/ML 1 ML VIAL ONE (21:02)
[2019-12-23 21:16] LABS: BASOPHILS % (AUTO) 0.5 % (0.0-5.0); HEMATOCRIT 39.9 % (42-54); LYMPHOCYTES % (AUTO) 20.9 % (21.0-51.0); MEAN CORPUSCULAR HEMOGLOBIN 30.3 pg (27.0-33.0); MEAN CORPUSCULAR HGB CONC 33.6 g/dL (32.0-36.0); MEAN CORPUSCULAR VOLUME 90.3 fL (79-99); MONOCYTES % (AUTO) 9.7 % (3.0-13.0); NEUTROPHILS % (AUTO) 66.5 % (40.0-77.0); PLATELET COUNT (AUTO) 298 K/uL (130-400); RED BLOOD CELL COUNT(AUTO) 4.42 MIL/uL (4.50-6.20); WHITE BLOOD COUNT (AUTO) 15.4 K/uL (4.8-10.8)
[2019-12-23 21:41] LABS: POTASSIUM 3.6 mmol/L (3.5-5.1)
[2019-12-23 21:46] LABS: ALBUMIN 3.9 g/dL (3.5-5.0); BILIRUBIN,TOTAL 0.3 mg/dL (0.2-1.0); TOTAL PROTEIN, SERUM 8.5 g/dL (6.0-8.3)
[2019-12-23] MEDS ORDERED: BISACODYL 10 MG SUPP.RECT RC ONE (23:25)
[2019-12-24] MEDS ORDERED: MORPHINE SULFATE 2 MG/ML 1ML SYG ONE (00:30)
[2019-12-24] MEDS ORDERED: ACETAMINOPHEN 325 MG TAB ONE (02:49)
[2019-12-24] MEDS ORDERED: SODIUM CHLORIDE 0.9% 1000ML 1,000 ML IV SCH ×2 (03:03→03:15)
[2019-12-24] MEDS ORDERED: NITROGLYCERIN 0.4 MG SL TAB SL PRN (03:15)
[2019-12-24] MEDS ORDERED: ACETAMINOPHEN 325 MG TAB PO PRN ×2 (03:15)
[2019-12-24] MEDS ORDERED: LACTULOSE 20 GM/30 ML UDCUP PO PRN (03:15)
[2019-12-24] MEDS ORDERED: IPRATROPIUM/ALBUTEROL SULFATE 3 ML SOLUTION IH PRN (03:15)
[2019-12-24] MEDS ORDERED: DIPHENHYDRAMINE HCL 25 MG CAPSULE PO PRN (03:15)
[2019-12-24] MEDS ORDERED: ONDANSETRON HCL 4 MG/2 ML VIAL IV PRN (03:15)
[2019-12-24 03:19] LABS: AMPHET/METH SCREEN,URINE NEGATIVE (NEGATIVE); BARBITURATE SCREEN, URINE NEGATIVE (NEGATIVE); BENZODIAZEPINES SCREEN,URINE NEGATIVE (NEGATIVE); CANNABINOID SCREEN,URINE NEGATIVE (NEGATIVE); COCAINE SCREEN,URINE POSITIVE (NEGATIVE); OPIATE SCREEN,URINE NEGATIVE (NEGATIVE); PHENCYCLIDINE SCREEN,URINE NEGATIVE (NEGATIVE)
[2019-12-24 04:15] LABS: MEAN CORPUSCULAR HEMOGLOBIN 30.3 pg (27.0-33.0); MEAN CORPUSCULAR HGB CONC 34.1 g/dL (32.0-36.0); MEAN CORPUSCULAR VOLUME 88.9 fL (79-99); PLATELET COUNT (AUTO) 277 K/uL (130-400); RED BLOOD CELL COUNT(AUTO) 4.16 MIL/uL (4.50-6.20); RED CELL DISTRIBUTION WIDTH 12.9 % (11.0-15.5); WHITE BLOOD COUNT (AUTO) 21.2 K/uL (4.8-10.8)
[2019-12-24 04:31] LABS: ALBUMIN 3.6 g/dL (3.5-5.0); BILIRUBIN,TOTAL 0.3 mg/dL (0.2-1.0); MAGNESIUM 2.2 mg/dL (1.80-2.40); POTASSIUM 3.6 mmol/L (3.5-5.1); TOTAL PROTEIN, SERUM 7.6 g/dL (6.0-8.3)
[2019-12-24] MEDS ORDERED: SODIUM CHLORIDE 0.9% 1000ML 1,000 ML IV ONE ×2 (05:49→17:45)
[2019-12-24] MEDS ORDERED: CEFTRIAXONE SODIUM 1 GM ONE (05:52)
[2019-12-24] MEDS ORDERED: CEFTRIAXONE SODIUM 1 GM IVP SCH (06:00)
[2019-12-24 07:37] LABS: EOSINOPHILS % (MANUAL) 1 % (1-6); LYMPHOCYTES % (MANUAL) 11 % (22-44); MAN.DIFF COMMENT-IMPRESSION MANUAL DIFFERENTIAL; MONOCYTES % (MANUAL) 6 % (2-9); PLATELET MORPHOLOGY COMMENT ADEQUATE; SEGMENTED NEUTROPHILS % 82 % (40-70)
[2019-12-24] MEDS ORDERED: FAMOTIDINE 20MG TAB 20 MG TAB PO SCH (09:00)
[2019-12-24] MEDS ORDERED: NICOTINE 21 MG/ 24 HR PATCH TD SCH (09:00)
[2019-12-24] MEDS ORDERED: ENOXAPARIN SODIUM 30 MG/0.3 ML SQ SCH (09:00)
[2019-12-24] MEDS ORDERED: FAMOTIDINE 20MG TAB 20 MG TAB ONE ×2 (09:52→22:42)
[2019-12-24] MEDS ORDERED: ENOXAPARIN SODIUM 30 MG/0.3 ML SQ ONE (09:54)
[2019-12-24] MEDS ORDERED: LACTULOSE 20 GM/30 ML UDCUP ONE (12:38)
[2019-12-24] MEDS ORDERED: ALBU90AE2 IH (14:53)
[2019-12-24] MEDS ORDERED: PROAIR (14:53)
[2019-12-24] MEDS ORDERED: DOCU100T PO (14:53)
[2019-12-24] MEDS ORDERED: LEVO25TA54 PO (14:53)
[2019-12-24] MEDS ORDERED: FOLIC ACID PO (14:53)
[2019-12-24] MEDS ORDERED: ASCO500C18 PO (15:09)
[2019-12-24] MEDS ORDERED: [UNRECOGNIZED DRUG - CODE] PO (15:11)
[2019-12-24] MEDS ORDERED: PYRIDOXINE (15:11)
--- NOTE | 2019-12-24 18:25 | NUR ---
INITIAL: Call placed to ADORE Sweet(spouse). Per Micki prior to admission pt lived w her. Pt is independent w ambulation and ADLs. He does not own any DMe or receive services. [facility] as [facility] do not have [facility]. Per Micki dcp is for home. CM to continue to follow and wait for Md recommendations. Addendum: 12/24/19 at 1826 by ROSA SALVADOR Amended: Links added. Addendum: 12/24/19 at 182 by ROSA SALVADOR (Correction) Pt remains in ED. Call placed to his cell phone. was able to speak w pt, he mentions that prior to admission pt lived w his spouse Micki. Pt is independent w ambulation and ADLs. He does not own any DMe or receive services. [facility] uses [facility] as they do not have a [facility]. Per pt dcp is for home.
[2019-12-25] MEDS ORDERED: CEFTRIAXONE SODIUM 1 GM ONE (06:20)
[2019-12-25] MEDS ORDERED: FAMOTIDINE 20MG TAB 20 MG TAB ONE ×2 (09:32→21:06)
[2019-12-25] MEDS ORDERED: SERT100T12 PO (09:51)
--- NOTE | 2019-12-25 12:58 | NUR ---
SPOKE TO PT VIA PHONE FOR DC PLANNING STATES INDEPENDENT AND ACTIVE STATES LIVES WITH SPOUSE OZIEL WHO IS DISABLED- SPOUSE HAS SHOWER CHAIR, HOME IS SAFE AND ACCESSIBLE; STATES NO CAR, TRANSPORT IS PROVIDED BY A MIXTURE OF FRIEND/FAMILY; NOT SURE WHO HE WILL CALL AT DISCHARGE, [facility]LL[facility] WITH [facility], [facility]" , [facility], AND SEES THEM REGULARLY, NO DC NEEDS EXPECTED Addendum: 12/25/19 at 1615 by BERENICE ROWE RN CM Amended: Links added.
[2019-12-26] MEDS ORDERED: SIMETHICONE 80 MG TAB.CHEW ONE (00:25)
[2019-12-26] MEDS ORDERED: CEFTRIAXONE SODIUM 1 GM ONE (05:19)
[2019-12-26 06:58] LABS: BASOPHILS % (AUTO) 0.5 % (0.0-5.0); EOSINOPHILS % (AUTO) 2.6 % (0.0-8.0); HEMATOCRIT 36.2 % (42-54); LYMPHOCYTES % (AUTO) 21.6 % (21.0-51.0); MEAN CORPUSCULAR HEMOGLOBIN 30.2 pg (27.0-33.0); MEAN CORPUSCULAR HGB CONC 33.1 g/dL (32.0-36.0); MEAN CORPUSCULAR VOLUME 91.2 fL (79-99); MONOCYTES % (AUTO) 10.4 % (3.0-13.0); NEUTROPHILS % (AUTO) 64.5 % (40.0-77.0); PLATELET COUNT (AUTO) 231 K/uL (130-400); RED BLOOD CELL COUNT(AUTO) 3.97 MIL/uL (4.50-6.20); RED CELL DISTRIBUTION WIDTH 13.1 % (11.0-15.5); WHITE BLOOD COUNT (AUTO) 10.4 K/uL (4.8-10.8)
[2019-12-26 07:22] LABS: CREATININE 0.8 mg/dL (0.5-1.5); POTASSIUM 3.6 mmol/L (3.5-5.1)
[2019-12-26] MEDS ORDERED: SODIUM CHLORIDE 0.9% 1000ML 1,000 ML IV ONE (07:44)
[2019-12-26] MEDS ORDERED: ENOXAPARIN SODIUM 30 MG/0.3 ML SQ ONE (07:46)
[2019-12-26] MEDS ORDERED: FAMOTIDINE 20MG TAB 20 MG TAB ONE (07:46)
[2019-12-26] MEDS ORDERED: LACTULOSE 20 GM/30 ML UDCUP ONE (07:50)
[2019-12-26] MEDS ORDERED: POLYETHYLENE GLYCOL 3350 17 GM POWD.PACK ONE (08:54)
[2019-12-26] MEDS ORDERED: POLYETHYLENE GLYCOL 3350 17 GM POWD.PACK PO SCH (09:00)
[2019-12-26 09:15] LABS: INR 0.94 (0.85-1.15); PARTIAL THROMBOPLASTIN TIME 29.9 SEC (26.3-35.5); PROTHROMBIN TIME 10.2 SEC (9.6-11.6)
[2019-12-26 09:49] LABS: CRP QUANTITATIVE 44.3 mg/L (0.00-9.0)
[2019-12-26] MEDS ORDERED: POLY17PO4 PO (11:26)
[2019-12-26] MEDS ORDERED: BISA-72 PO (11:26)
== END 2019-12-26 13:14 | disposition home or self-care (01) ==
LOC: EDH 19:55 → EDHIP 12-24 03:12
PROVIDERS: ADMIT Hospitalist; ATTEND Hospitalist
DX: K59.00 Constipation, unspecified (principal); Z20.828 Contact with and (suspected) exposure to other viral communicable diseases; N28.1 Cyst of kidney, acquired; K80.20 Calculus of gallbladder without cholecystitis without obstruction; F14.10 Cocaine abuse, uncomplicated; I10 Essential (primary) hypertension; J44.9 Chronic obstructive pulmonary disease, unspecified; N39.0 Urinary tract infection, site not specified; E78.5 Hyperlipidemia, unspecified; E66.9 Obesity, unspecified; F17.210 Nicotine dependence, cigarettes, uncomplicated; E11.9 Type 2 diabetes mellitus without complications; D72.829 Elevated white blood cell count, unspecified; M47.815 Spondylosis without myelopathy or radiculopathy, thoracolumbar region; Z68.36 Body mass index [BMI] 36.0-36.9, adult
CPT/HCPCS: 36415 ×3; 71045; 74018 ×2; 74176; 78226; 80048; 80053 ×2; 80305; 81001; 82270; 82728; 83615; 83690; 83735; 85025 ×3; 85378; 85610; 85730; 86140; 87040 ×2; 87088; 93005; 94664; 99285; A9537; G0378 ×22; J0696 ×3; J1650 ×2; J2060; J7030 ×3; U0003

== ENCOUNTER 2021-11-30 23:26 | Emergency (ER) | payer OTHER ==
[~2021-11-30] VITALS: Ht 177.8 cm; Wt 111.1 kg
[~2021-11-30 23:26] MED LIST changes: +ALBU90AE2 IH; +ASCO500C18 PO; +BISA-72 PO; -BUDE10.22 IH; -CYAN10007 IM; +DOCU100T PO; -FOLI0.4T2 PO; +FOLIC ACID PO; -GUAI400T94 PO; +LEVO25TA54 PO; -PARO40TA72 PO; +POLY17PO4 PO; -QUET400T12 PO; +QUET400T13 PO; +SERT-440 PO; -SILD20TA14 PO; +[UNRECOGNIZED DRUG - CODE] PO
[2021-12-01 00:22] LABS: CREATININE 0.9 mg/dL (0.5-1.5); POTASSIUM 4.1 mmol/L (3.5-5.1)
[2021-12-01 00:27] LABS: ALBUMIN 3.5 g/dL (3.5-5.0); BILIRUBIN,TOTAL 0.5 mg/dL (0.2-1.0); TOTAL PROTEIN, SERUM 7.8 g/dL (6.0-8.3)
[2021-12-01] MEDS ORDERED: HYDROMORPHONE 0.5 MG SYG (0.5MG/0.5ML) IVP ONE (00:30)
[2021-12-01 00:55] LABS: B-TYPE NATRIURETIC PEPTIDE 53 pg/mL (0-100)
[2021-12-01 00:56] LABS: BASOPHILS % (AUTO) 0.6 % (0.0-5.0); EOSINOPHILS % (AUTO) 3.5 % (0.0-8.0); HEMATOCRIT 37.2 % (42-54); LYMPHOCYTES % (AUTO) 16.4 % (21.0-51.0); MEAN CORPUSCULAR HEMOGLOBIN 28.7 pg (27.0-33.0); MEAN CORPUSCULAR HGB CONC 33.6 g/dL (32.0-36.0); MEAN CORPUSCULAR VOLUME 85.5 fL (79-99); MONOCYTES % (AUTO) 11.7 % (3.0-13.0); NEUTROPHILS % (AUTO) 66.9 % (40.0-77.0); PLATELET COUNT (AUTO) 245 K/uL (130-400); RED BLOOD CELL COUNT(AUTO) 4.35 MIL/uL (4.50-6.20); RED CELL DISTRIBUTION WIDTH 13.1 % (11.0-15.5); WHITE BLOOD COUNT (AUTO) 14.7 K/uL (4.8-10.8)
[2021-12-01 02:01] LABS: APPEARANCE,URINE CLEAR (CLEAR); BILIRUBIN,URINE NEGATIVE (NEGATIVE); COLOR,URINE YELLOW (YELLOW); GLUCOSE, URINE (UA) NEGATIVE (NEGATIVE); KETONES,URINE NEGATIVE (NEGATIVE); LEUKOCYTE ESTERASE ,URINE NEGATIVE (NEGATIVE); NITRATE,URINE NEGATIVE (NEGATIVE); OCCULT BLOOD,URINE NEGATIVE (NEGATIVE); PROTEIN,URINE NEGATIVE (NEGATIVE); UROBILINOGEN,URINE 0.2 mg/dL (0.2-1.0)
[2021-12-01] MEDS ORDERED: IOHEXOL 350 MG/ML 100ML INFUS..BTL IV ONE (02:30)
[2021-12-01] MEDS ORDERED: KETOROLAC 15MG/ML VIAL (15MG/ML) IV ONE (04:30)
[2021-12-01 05:30] VITALS: BP 118/68
[2021-12-01] MEDS ORDERED: HYDROMORPHONE 1 MG INJ IVP ONE (05:30)
[2021-12-01] MEDS ORDERED: CEFTRIAXONE 1G VIAL IVP ONE (05:30)
[2021-12-01] MEDS ORDERED: ACET-2079 PO (05:45)
[2021-12-01] MEDS ORDERED: CEFD300C3 PO (05:45)
== END 2021-12-01 07:56 | disposition home or self-care (01) ==
LOC: EDH 23:26
DX: D72.829 Elevated white blood cell count, unspecified (principal); G89.29 Other chronic pain; E11.9 Type 2 diabetes mellitus without complications; F20.9 Schizophrenia, unspecified; I10 Essential (primary) hypertension; J44.9 Chronic obstructive pulmonary disease, unspecified; F43.10 Post-traumatic stress disorder, unspecified; F17.200 Nicotine dependence, unspecified, uncomplicated; Z79.1 Long term (current) use of non-steroidal anti-inflammatories (NSAID); Z79.82 Long term (current) use of aspirin; Z86.73 Personal history of transient ischemic attack (TIA), and cerebral infarction without residual deficits
CPT/HCPCS: 36415 ×2; 71045; 71260; 72125; 74177; 80053; 81003; 83605; 83880; 84145; 84484; 85025; 85651; 86140; 87040 ×2; 93005; 96374; 96375; 99285; J0696; J1170 ×2; J1885; Q9967

== ENCOUNTER 2021-12-15 01:53 | Emergency (ER) | payer OTHER ==
[~2021-12-15] VITALS: Ht 177.8 cm; Wt 111.6 kg
[~2021-12-15 01:53] MED LIST changes: +ACET-2079 PO; +CEFD300C3 PO
[2021-12-15 02:58] LABS: APPEARANCE,URINE CLEAR (CLEAR); BASOPHILS % (AUTO) 0.7 % (0.0-5.0); BILIRUBIN,URINE NEGATIVE (NEGATIVE); COLOR,URINE YELLOW (YELLOW); EOSINOPHILS % (AUTO) 4.4 % (0.0-8.0); GLUCOSE, URINE (UA) NEGATIVE (NEGATIVE); HEMATOCRIT 35.1 % (42-54); KETONES,URINE NEGATIVE (NEGATIVE); LEUKOCYTE ESTERASE ,URINE NEGATIVE (NEGATIVE); LYMPHOCYTES % (AUTO) 13.8 % (21.0-51.0); MEAN CORPUSCULAR HGB CONC 33.3 g/dL (32.0-36.0); MEAN CORPUSCULAR VOLUME 87.1 fL (79-99); MONOCYTES % (AUTO) 8.2 % (3.0-13.0); NEUTROPHILS % (AUTO) 72.3 % (40.0-77.0); NITRATE,URINE NEGATIVE (NEGATIVE); OCCULT BLOOD,URINE NEGATIVE (NEGATIVE); PH,URINE 6.5 (5.0-8.0); PLATELET COUNT (AUTO) 268 K/uL (130-400); PROTEIN,URINE NEGATIVE (NEGATIVE); RED BLOOD CELL COUNT(AUTO) 4.03 MIL/uL (4.50-6.20); RED CELL DISTRIBUTION WIDTH 13.2 % (11.0-15.5); UROBILINOGEN,URINE 0.2 mg/dL (0.2-1.0); WHITE BLOOD COUNT (AUTO) 12.2 K/uL (4.8-10.8)
[2021-12-15] MEDS ORDERED: KETOROLAC 15MG/ML VIAL (15MG/ML) IV ONE (03:00)
[2021-12-15] MEDS ORDERED: LACTATED RINGERS 1000ML 1,000 ML IV ONE (03:00)
[2021-12-15 03:06] LABS: CREATININE 0.8 mg/dL (0.5-1.5); POTASSIUM 3.9 mmol/L (3.5-5.1)
[2021-12-15 03:11] LABS: ALBUMIN 3.1 g/dL (3.5-5.0); BILIRUBIN,TOTAL 0.2 mg/dL (0.2-1.0); TOTAL PROTEIN, SERUM 7.4 g/dL (6.0-8.3)
[2021-12-15] MEDS ORDERED: IBUP-1493 PO (05:08)
[2021-12-15 05:33] VITALS: BP 139/83
[2021-12-15] MEDS ORDERED: DICY20TA2 PO (15:42)
[2021-12-15] MEDS ORDERED: AMOX1TAB16 PO (15:48)
== END 2021-12-15 05:46 | disposition home or self-care (01) ==
LOC: EDH 01:53
DX: K80.80 Other cholelithiasis without obstruction (principal); J44.9 Chronic obstructive pulmonary disease, unspecified; E78.00 Pure hypercholesterolemia, unspecified; I10 Essential (primary) hypertension; F20.9 Schizophrenia, unspecified; Z98.890 Other specified postprocedural states; Z79.899 Other long term (current) drug therapy; Z79.82 Long term (current) use of aspirin; Z88.5 Allergy status to narcotic agent
CPT/HCPCS: 99284; 74176; 96374; 96361; 82150; 80053; 85025; 81003; 36415; J7120; J1885

== ENCOUNTER 2021-12-15 12:41 | Emergency (ER) | payer OTHER ==
[~2021-12-15] VITALS: Ht 177.8 cm; Wt 111.1 kg
[~2021-12-15 12:41] MED LIST changes: +IBUP-1493 PO
[2021-12-15] MEDS ORDERED: BUDESONIDE 0.5 MG/2 ML INH IH STA (12:54)
[2021-12-15] MEDS ORDERED: KETOROLAC 30MG VIAL (30MG/ML) IVP ONE (13:00)
[2021-12-15] MEDS ORDERED: 0.9%NACL 1000ML 1,000 ML IV SCH (13:00)
[2021-12-15] MEDS ORDERED: IPRATROPIUM/ALBUTEROL SULFATE 3 ML SOLUTION IH ONE (13:00)
[2021-12-15] MEDS ORDERED: PROMETHAZINE HCL 25 MG/ML 1ML AMPULE IVPB SCH (13:00)
[2021-12-15 13:57] LABS: BASOPHILS % (AUTO) 0.8 % (0.0-5.0); EOSINOPHILS % (AUTO) 4.1 % (0.0-8.0); HEMATOCRIT 38.1 % (42-54); LYMPHOCYTES % (AUTO) 13.5 % (21.0-51.0); MEAN CORPUSCULAR HEMOGLOBIN 28.5 pg (27.0-33.0); MEAN CORPUSCULAR HGB CONC 32.8 g/dL (32.0-36.0); MONOCYTES % (AUTO) 7.8 % (3.0-13.0); PLATELET COUNT (AUTO) 221 K/uL (130-400); RED BLOOD CELL COUNT(AUTO) 4.38 MIL/uL (4.50-6.20); RED CELL DISTRIBUTION WIDTH 13.2 % (11.0-15.5)
[2021-12-15 13:58] LABS: CREATININE 0.8 mg/dL (0.5-1.5); POTASSIUM 4.4 mmol/L (3.5-5.1)
[2021-12-15 14:03] LABS: ALBUMIN 3.4 g/dL (3.5-5.0); BILIRUBIN,TOTAL 0.3 mg/dL (0.2-1.0); TOTAL PROTEIN, SERUM 7.9 g/dL (6.0-8.3)
[2021-12-15 14:08] VITALS: BP 169/103
[2021-12-15 14:10] LABS: APPEARANCE,URINE Clear (CLEAR); BILIRUBIN,URINE Negative (NEGATIVE); COLOR,URINE Yellow (YELLOW); GLUCOSE, URINE (UA) Negative (NEGATIVE); KETONES,URINE Negative (NEGATIVE); LEUKOCYTE ESTERASE ,URINE Trace (NEGATIVE); NITRATE,URINE Negative (NEGATIVE); OCCULT BLOOD,URINE Negative (NEGATIVE); PROTEIN,URINE Negative (NEGATIVE); UROBILINOGEN,URINE 0.2 mg/dL (0.2-1.0)
[2021-12-15 14:15] LABS: AMPHET/METH SCREEN,URINE NEGATIVE (NEGATIVE); BARBITURATE SCREEN, URINE NEGATIVE (NEGATIVE); BENZODIAZEPINES SCREEN,URINE NEGATIVE (NEGATIVE); CANNABINOID SCREEN,URINE NEGATIVE (NEGATIVE); COCAINE SCREEN,URINE NEGATIVE (NEGATIVE); OPIATE SCREEN,URINE POSITIVE (NEGATIVE); PHENCYCLIDINE SCREEN,URINE NEGATIVE (NEGATIVE)
[2021-12-15 14:25] LABS: BACTERIA,URINE Rare /HPF (None Seen); RBC,URINE 0-1 /HPF (0-1); SQUAMOUS EPITHELIAL CELL,UR Rare /HPF (0-2); WBC,URINE 0-1 /HPF (0-1)
[2021-12-15] MEDS ORDERED: AZITHROMYCIN 250 MG TABLET PO ONE (14:30)
[2021-12-15] MEDS ORDERED: CEFTRIAXONE 1G VIAL IVP ONE (14:30)
[2021-12-15] MEDS ORDERED: DICY20TA2 PO (15:42)
[2021-12-15] MEDS ORDERED: AMOX1TAB16 PO (15:48)
== END 2021-12-15 15:52 | disposition home or self-care (01) ==
LOC: EDH 12:41
DX: J18.9 Pneumonia, unspecified organism (principal); F11.10 Opioid abuse, uncomplicated; N28.9 Disorder of kidney and ureter, unspecified; E66.01 Morbid (severe) obesity due to excess calories; Z68.35 Body mass index [BMI] 35.0-35.9, adult; Z20.822 Contact with and (suspected) exposure to COVID-19; J44.9 Chronic obstructive pulmonary disease, unspecified; E11.9 Type 2 diabetes mellitus without complications; I10 Essential (primary) hypertension; F20.9 Schizophrenia, unspecified; F31.9 Bipolar disorder, unspecified; F43.10 Post-traumatic stress disorder, unspecified; F17.200 Nicotine dependence, unspecified, uncomplicated; Z88.8 Allergy status to other drugs, medicaments and biological substances; Z79.899 Other long term (current) drug therapy; Z79.82 Long term (current) use of aspirin; Z86.73 Personal history of transient ischemic attack (TIA), and cerebral infarction without residual deficits; Z98.890 Other specified postprocedural states
CPT/HCPCS: 99285; 74176; 96374; 71045; 96375; 87635; 96361; 84484; 80053; 80305; 83690; 85025; 36415; 94640; 81001; C9803; J7030; J2550; J0696; J1885

== ENCOUNTER 2022-02-24 17:58 | Inpatient (IN) | payer OTHER ==
[~2022-02-24] VITALS: Ht 177.8 cm; Wt 127.0 kg
[~2022-02-24 17:58] MED LIST changes: +AMOX1TAB16 PO; +DICY20TA2 PO
[2022-02-24 19:20] LABS: BASOPHILS % (AUTO) 0.5 % (0.0-5.0); EOSINOPHILS % (AUTO) 3.2 % (0.0-8.0); LYMPHOCYTES % (AUTO) 17.5 % (21.0-51.0); MEAN CORPUSCULAR HEMOGLOBIN 28.6 pg (27.0-33.0); MEAN CORPUSCULAR VOLUME 86.7 fL (79-99); MONOCYTES % (AUTO) 10.8 % (3.0-13.0); NEUTROPHILS % (AUTO) 66.6 % (40.0-77.0); PLATELET COUNT (AUTO) 260 K/uL (130-400); RED BLOOD CELL COUNT(AUTO) 4.27 MIL/uL (4.50-6.20); RED CELL DISTRIBUTION WIDTH 13.9 % (11.0-15.5); WHITE BLOOD COUNT (AUTO) 11.5 K/uL (4.8-10.8)
[2022-02-24 19:25] LABS: ALBUMIN 3.5 g/dL (3.5-5.0); TOTAL PROTEIN, SERUM 7.9 g/dL (6.0-8.3)
[2022-02-24 19:45] LABS: B-TYPE NATRIURETIC PEPTIDE 97 pg/mL (0-100)
[2022-02-24] MEDS ORDERED: SOLU-MEDROL 125MG VIAL IVP ONE (20:00)
[2022-02-24] MEDS ORDERED: IPRATROPIUM/ALBUTEROL SULFATE 3 ML SOLUTION IH ONE (20:00)
[2022-02-24] MEDS ORDERED: POTASSIUM CHLORIDE 10MEQ SR TAB PO STA (20:36)
[2022-02-24 20:37] LABS: INR 0.93 (0.85-1.15); PROTHROMBIN TIME 10.2 SEC (9.6-11.6)
[2022-02-24 20:39] LABS: PARTIAL THROMBOPLASTIN TIME 25.1 SEC (26.3-35.5)
[2022-02-24] MEDS: POTASSIUM CHLORIDE 10MEQ/100ML 100 ML IV SCH ×2 (21:30→23:39)
[2022-02-24] MEDS ORDERED: ACETAMINOPHEN 325 MG TAB PO PRN ×2 (22:30)
[2022-02-24] MEDS ORDERED: IPRATROPIUM/ALBUTEROL SULFATE 3 ML SOLUTION IH PRN (22:30)
[2022-02-24] MEDS ORDERED: NITROGLYCERIN 0.4 MG SL TAB SL PRN (22:30)
[2022-02-24] MEDS ORDERED: ONDANSETRON 4MG INJ IV PRN (22:30)
[2022-02-24] MEDS ORDERED: KCL 20 MEQ ERTAB PO PRN (23:00)
[2022-02-24] MEDS ORDERED: MAGNESIUM 2GM PREMIX 50ML 50 ML IV PRN (23:00)
[2022-02-24] MEDS ORDERED: POTASSIUM CHLORIDE 10% ELIXIR 20 MEQ/15 ML UDCUP PO PRN (23:00)
[2022-02-24] MEDS ORDERED: LIDOCAINE HCL-MPF 1% 2ML VIAL IJ PRN (23:00)
[2022-02-24] MEDS ORDERED: MAGNESIUM 2GM PREMIX 50ML 50 ML IV SCH (23:00)
[2022-02-24] MEDS ORDERED: DEXTROSE 50%-WATER 50 ML DISP.SYRIN IV PRN (23:00)
[2022-02-24] MEDS ORDERED: GLUCAGON 1MG KIT 1 MG ML IM PRN (23:00)
[2022-02-24] MEDS ORDERED: POTASSIUM CHLORIDE 20MEQ/100ML 100 ML IV PRN (23:00)
[2022-02-24 23:17] LABS: HEMOGLOBIN A1C 6.4 % (4.0-6.0)
[2022-02-24] MEDS ORDERED: FUROSEMIDE 40MG VIAL IV ONE (23:30)
[2022-02-25 00:06] LABS: ABG BASE EXCESS 3.5 mmol/L (-2.0-3.0); ABG HCO3 29.9 mmol/L (21.0-28.0); ABG PCO2 52 mmHg (35-48)
[2022-02-25 00:39] LABS: APPEARANCE,URINE CLEAR (CLEAR); BILIRUBIN,URINE NEGATIVE (NEGATIVE); COLOR,URINE LIGHT-YELLOW (YELLOW); GLUCOSE, URINE (UA) NEGATIVE (NEGATIVE); KETONES,URINE NEGATIVE (NEGATIVE); LEUKOCYTE ESTERASE ,URINE NEGATIVE Leu/uL (NEGATIVE); NITRATE,URINE NEGATIVE (NEGATIVE); OCCULT BLOOD,URINE NEGATIVE (NEGATIVE); PH,URINE 5.5 (5.0-8.0); PROTEIN,URINE NEGATIVE (NEGATIVE); UROBILINOGEN,URINE 0.2 mg/dL (0.2-1.0)
[2022-02-25 01:16] LABS: AMPHET/METH SCREEN,URINE NEGATIVE (NEGATIVE); BARBITURATE SCREEN, URINE NEGATIVE (NEGATIVE); BENZODIAZEPINES SCREEN,URINE NEGATIVE (NEGATIVE); CANNABINOID SCREEN,URINE POSITIVE (NEGATIVE); COCAINE SCREEN,URINE NEGATIVE (NEGATIVE); PHENCYCLIDINE SCREEN,URINE NEGATIVE (NEGATIVE)
[2022-02-25] MEDS: IPRATROPIUM/ALBUTEROL SULFATE 3 ML SOLUTION IH SCH ×6 (01:43→22:06)
[2022-02-25] MEDS ORDERED: PANT40TA54 PO (03:55)
[2022-02-25] MEDS ORDERED: DIVA500T52 PO (03:55)
[2022-02-25] MEDS ORDERED: LOSA50TA64 PO (03:55)
[2022-02-25] MEDS ORDERED: TORS100T16 PO (03:55)
[2022-02-25] MEDS ORDERED: MIRT7.5T11 PO (03:56)
[2022-02-25] MEDS ORDERED: DOCU100C33 PO (03:56)
[2022-02-25] MEDS ORDERED: POTA-79 PO (03:56)
[2022-02-25] MEDS: SOLU-MEDROL 125MG VIAL IVP SCH ×3 (05:38→20:51)
[2022-02-25 05:43] LABS: BASOPHILS % (AUTO) 0.2 % (0.0-5.0); EOSINOPHILS % (AUTO) 0.2 % (0.0-8.0); HEMATOCRIT 36.2 % (42-54); LYMPHOCYTES % (AUTO) 7.2 % (21.0-51.0); MEAN CORPUSCULAR HEMOGLOBIN 28.3 pg (27.0-33.0); MEAN CORPUSCULAR HGB CONC 32.6 g/dL (32.0-36.0); MEAN CORPUSCULAR VOLUME 86.8 fL (79-99); MONOCYTES % (AUTO) 4.3 % (3.0-13.0); NEUTROPHILS % (AUTO) 86.7 % (40.0-77.0); PLATELET COUNT (AUTO) 224 K/uL (130-400); RED BLOOD CELL COUNT(AUTO) 4.17 MIL/uL (4.50-6.20); RED CELL DISTRIBUTION WIDTH 14.2 % (11.0-15.5); WHITE BLOOD COUNT (AUTO) 12.5 K/uL (4.8-10.8)
[2022-02-25 06:06] LABS: ALBUMIN 3.5 g/dL (3.5-5.0); CREATININE 1.2 mg/dL (0.5-1.5); MAGNESIUM 1.9 mg/dL (1.80-2.40); POTASSIUM 3.9 mmol/L (3.5-5.1); TOTAL PROTEIN, SERUM 8.2 g/dL (6.0-8.3)
[2022-02-25] MEDS: INSULIN HUMULIN R 100 UNIT/ML 3ML SQ SCH ×3 (07:30→20:59)
[2022-02-25] MEDS: FAMOTIDINE 20MG TAB PO SCH ×2 (09:01→20:50)
[2022-02-25] MEDS: ENOXAPARIN SODIUM 40 MG/0.4 ML SYRINGE SQ SCH (09:01)
[2022-02-25 14:30] VITALS: BP 115/64
[2022-02-25 15:35] VITALS: BP 108/65
[2022-02-25] MEDS ORDERED: DOCUSATE SODIUM 100 MG CAP PO PRN (16:30)
[2022-02-25 20:46] VITALS: BP 99/49
[2022-02-25] MEDS: QUETIAPINE FUMARATE 100 MG TAB PO SCH ×2 (20:49→21:00)
[2022-02-25] MEDS: SIMVASTATIN 20 MG TABLET PO SCH ×2 (20:50→21:00)
[2022-02-25] MEDS: MIRTAZAPINE 15 MG TABLET PO SCH ×2 (20:50→21:00)
[2022-02-25] MEDS ORDERED: SIMVASTATIN 80 MG PO SCH (21:00)
[2022-02-25] MEDS ORDERED: DIVALPROEX SODIUM PO SCH (21:00)
[2022-02-25] MEDS ORDERED: QUETIAPINE FUMARATE 600 MG PO SCH (21:00)
[2022-02-25] MEDS ORDERED: NON-FORMULARY MEDICATION 1 EACH (Mirtazapine 7.5 MG) PO SCH (21:00)
[2022-02-26 00:02] VITALS: BP 100/57
[2022-02-26] MEDS: IPRATROPIUM/ALBUTEROL SULFATE 3 ML SOLUTION IH SCH ×6 (01:15→21:46)
[2022-02-26] MEDS: SOLU-MEDROL 125MG VIAL IVP SCH ×2 (04:22→13:44)
[2022-02-26 04:32] VITALS: BP 121/73
[2022-02-26] MEDS: LEVOTHYROXINE 25 MCG TABLET PO SCH (06:44)
[2022-02-26 07:30] VITALS: BP 137/72
[2022-02-26] MEDS: SERTRALINE HCL 50 MG TABLET PO SCH (08:44)
[2022-02-26] MEDS: KCL 20 MEQ ERTAB PO SCH (08:44)
[2022-02-26] MEDS: PANTOPRAZOLE 40 MG TAB DR PO SCH (08:44)
[2022-02-26] MEDS: LOSARTAN 50 MG TABLET PO SCH (08:45)
[2022-02-26] MEDS: ASPIRIN 81 MG EC TAB PO SCH (08:45)
[2022-02-26] MEDS: TAMSULOSIN HCL 0.4 MG CAP.ER.24H PO SCH (08:45)
[2022-02-26] MEDS: FAMOTIDINE 20MG TAB PO SCH ×3 (08:46→20:29)
[2022-02-26] MEDS: NICOTINE 21 MG/ 24 HR PATCH TD SCH (08:46)
[2022-02-26] MEDS: ENOXAPARIN SODIUM 40 MG/0.4 ML SYRINGE SQ SCH (08:46)
[2022-02-26] MEDS ORDERED: NON-FORMULARY MEDICATION 1 EACH (Potassium Chloride 20 MEQ) PO SCH (09:00)
[2022-02-26] MEDS ORDERED: NON-FORMULARY MEDICATION 1 EACH (Sertraline HCl 100 MG) PO SCH (09:00)
[2022-02-26] MEDS ORDERED: TORSEMIDE 20 MG TAB PO SCH (09:00)
[2022-02-26] MEDS ORDERED: TORSEMIDE 100 MG PO SCH (09:00)
[2022-02-26 11:30] VITALS: BP 104/55
[2022-02-26] MEDS: INSULIN HUMULIN R 100 UNIT/ML 3ML SQ SCH ×3 (11:30→21:00)
[2022-02-26] MEDS ORDERED: ALPRAZOLAM 0.5 MG TABLET PO SCH (11:30)
[2022-02-26] MEDS: SOLU-MEDROL 40MG VIAL IVP SCH ×2 (14:30→22:02)
[2022-02-26 15:25] VITALS: BP 91/48
[2022-02-26] MEDS: QUETIAPINE FUMARATE 100 MG TAB PO SCH ×2 (20:16→20:29)
[2022-02-26] MEDS: SIMVASTATIN 20 MG TABLET PO SCH ×2 (20:16→20:29)
[2022-02-26] MEDS: MIRTAZAPINE 15 MG TABLET PO SCH ×2 (20:16→20:29)
[2022-02-26 20:24] VITALS: BP 111/65
[2022-02-27 00:24] VITALS: BP 108/65
[2022-02-27] MEDS: IPRATROPIUM/ALBUTEROL SULFATE 3 ML SOLUTION IH SCH ×4 (02:18→13:58)
[2022-02-27 03:15] LABS: ABG HCO3 36.3 mmol/L (21.0-28.0); ABG OXYGEN SATURATION 94.8 % (95.0-99.0); ABG PCO2 61 mmHg (35-48)
[2022-02-27 03:25] VITALS: BP 93/60
[2022-02-27 04:04] LABS: BASOPHILS % (AUTO) 0.2 % (0.0-5.0); HEMATOCRIT 34.4 % (42-54); LYMPHOCYTES % (AUTO) 7.8 % (21.0-51.0); MEAN CORPUSCULAR HEMOGLOBIN 27.9 pg (27.0-33.0); MEAN CORPUSCULAR VOLUME 87.3 fL (79-99); MONOCYTES % (AUTO) 7.5 % (3.0-13.0); PLATELET COUNT (AUTO) 220 K/uL (130-400); RED BLOOD CELL COUNT(AUTO) 3.94 MIL/uL (4.50-6.20); RED CELL DISTRIBUTION WIDTH 14.6 % (11.0-15.5); WHITE BLOOD COUNT (AUTO) 15.2 K/uL (4.8-10.8)
[2022-02-27 04:26] LABS: ALBUMIN 3.3 g/dL (3.5-5.0); MAGNESIUM 2.4 mg/dL (1.80-2.40); POTASSIUM 3.7 mmol/L (3.5-5.1); TOTAL PROTEIN, SERUM 7.4 g/dL (6.0-8.3)
[2022-02-27] MEDS: INSULIN HUMULIN R 100 UNIT/ML 3ML SQ SCH ×2 (06:29→11:30)
[2022-02-27] MEDS: SOLU-MEDROL 40MG VIAL IVP SCH (06:30)
[2022-02-27 08:00] VITALS: BP 96/58
[2022-02-27] MEDS: TAMSULOSIN HCL 0.4 MG CAP.ER.24H PO SCH (08:38)
[2022-02-27] MEDS: NICOTINE 21 MG/ 24 HR PATCH TD SCH (08:38)
[2022-02-27] MEDS: SERTRALINE HCL 50 MG TABLET PO SCH (08:38)
[2022-02-27] MEDS: KCL 20 MEQ ERTAB PO SCH (08:39)
[2022-02-27] MEDS: ASPIRIN 81 MG EC TAB PO SCH (08:39)
[2022-02-27] MEDS: PANTOPRAZOLE 40 MG TAB DR PO SCH (08:39)
[2022-02-27] MEDS: FAMOTIDINE 20MG TAB PO SCH (08:40)
[2022-02-27] MEDS: ENOXAPARIN SODIUM 40 MG/0.4 ML SYRINGE SQ SCH (08:41)
[2022-02-27] MEDS: LEVOTHYROXINE 25 MCG TABLET PO SCH (09:48)
[2022-02-27 11:35] VITALS: BP 122/68
[2022-02-27] MEDS: LOSARTAN 50 MG TABLET PO SCH (12:46)
== END 2022-02-27 14:22 | disposition home or self-care (01) | DRG 189 ==
LOC: EDH 17:58 → EDHIP 22:05 → 4BH 02-25 15:17 → 4DH 02-27 13:53 → 4BH 02-27 13:54
PROVIDERS: ADMIT Hospitalist; ATTEND Hospitalist
PROC: 5A09357 Assistance with Respiratory Ventilation, Less than 24 Consecutive Hours, Continuous Positive Airway Pressure (ICD-10-PCS; principal; 2022-02-25)
DX: J96.02 Acute respiratory failure with hypercapnia (principal); J44.1 Chronic obstructive pulmonary disease with (acute) exacerbation; E66.2 Morbid (severe) obesity with alveolar hypoventilation; Z68.41 Body mass index [BMI] 40.0-44.9, adult; E87.2 Acidosis; I50.32 Chronic diastolic (congestive) heart failure; Z20.822 Contact with and (suspected) exposure to COVID-19; E87.6 Hypokalemia; E11.9 Type 2 diabetes mellitus without complications; E78.5 Hyperlipidemia, unspecified; F17.210 Nicotine dependence, cigarettes, uncomplicated; J96.01 Acute respiratory failure with hypoxia; I11.0 Hypertensive heart disease with heart failure; E83.42 Hypomagnesemia; Z79.899 Other long term (current) drug therapy; Z79.82 Long term (current) use of aspirin; Z82.49 Family history of ischemic heart disease and other diseases of the circulatory system; Z82.5 Family history of asthma and other chronic lower respiratory diseases; Z83.3 Family history of diabetes mellitus; Z86.73 Personal history of transient ischemic attack (TIA), and cerebral infarction without residual deficits; Z98.1 Arthrodesis status
CPT/HCPCS: 36415; 36600; 71045; 80053; 80305; 81003; 82803; 82948; 83036; 83735; 83880; 84484; 85025; 85378; 85610; 85730; 87635; 93005; 93306; 93356; 94640; 94660; 94664; 94760; C9803; G0378; J1650; J1940; J2405; J2920; J2930; J3475

== ENCOUNTER 2022-05-15 10:20 | Emergency (ER) | payer OTHER ==
[~2022-05-15 10:20] MED LIST changes: -AMOX1TAB16 PO; -ASCO500C18 PO; +CARB1DRO39 OP; -CEFD300C3 PO; -DICY20TA2 PO; +DIPH50CA37 PO; +DIVA500T52 PO; +DOCU100C33 PO; -DOCU100T PO; +DOXY100T2 PO; +FLUT1BLS12 IH; -FOLIC ACID PO; +GUAI120L62 PO; -IBUP-1493 PO; +LEVO-70 PO; +LOSA50TA64 PO; +MIRT-22 PO; -MULT-1278 PO; +NALO4SPR3 NS; +NICO-649 TD; -NICO-776 TD; +PANT40TA54 PO; -POLY17PO4 PO; +POTA-79 PO; +PRED20TA3 PO; -SIMV-46 PO; +SIMV40TA59 PO; +TORS100T16 PO
[2022-05-15] MEDS ORDERED: LIDOCAINE HCL 2% VISCOUS 15 ML UDCUP PO ONE (11:00)
[2022-05-15 11:54] LABS: APPEARANCE,URINE CLOUDY (CLEAR); BILIRUBIN,URINE NEGATIVE (NEGATIVE); COLOR,URINE LIGHT-ORANGE (YELLOW); GLUCOSE, URINE (UA) NEGATIVE (NEGATIVE); KETONES,URINE NEGATIVE (NEGATIVE); LEUKOCYTE ESTERASE ,URINE 500 Leu/uL (NEGATIVE); NITRATE,URINE NEGATIVE (NEGATIVE); OCCULT BLOOD,URINE LARGE (NEGATIVE); PH,URINE 5.5 (5.0-8.0); PROTEIN,URINE 50 mg/dL (NEGATIVE); UROBILINOGEN,URINE 0.2 mg/dL (0.2-1.0)
[2022-05-15] MEDS ORDERED: MACR100 PO (12:14)
[2022-05-15 12:22] LABS: BACTERIA,URINE RARE /HPF (None Seen); MUCUS,URINE RARE LPF (None Seen); RBC,URINE TNTC /HPF (0-1); SQUAMOUS EPITHELIAL CELL,UR RARE /HPF (0-2); WBC,URINE TNTC /HPF (0-1)
[2022-05-15] MEDS ORDERED: NITROFURANTOIN MONOHYD/M-CRYST 100 MG CAPSULE PO ONE (12:30)
[2022-05-15 13:00] VITALS: BP 130/70
== END 2022-05-15 13:07 | disposition home or self-care (01) ==
LOC: EDH 10:20
DX: N39.0 Urinary tract infection, site not specified (principal); R31.9 Hematuria, unspecified; N40.0 Benign prostatic hyperplasia without lower urinary tract symptoms; E03.9 Hypothyroidism, unspecified; I11.0 Hypertensive heart disease with heart failure; I50.9 Heart failure, unspecified; J44.9 Chronic obstructive pulmonary disease, unspecified; F17.200 Nicotine dependence, unspecified, uncomplicated; Z88.5 Allergy status to narcotic agent; Z79.899 Other long term (current) drug therapy; Z79.82 Long term (current) use of aspirin; Z98.890 Other specified postprocedural states
CPT/HCPCS: 51702; 81001; 87077; 87088; 87186

== ENCOUNTER 2022-05-15 17:05 | Emergency (ER) | payer OTHER ==
[~2022-05-15] VITALS: Ht 177.8 cm; Wt 105.7 kg
[~2022-05-15 17:05] MED LIST changes: +MACR100 PO
[2022-05-15 19:46] LABS: BASOPHILS % (AUTO) 0.3 % (0.0-5.0); EOSINOPHILS % (AUTO) 1.8 % (0.0-8.0); HEMATOCRIT 33.2 % (42-54); LYMPHOCYTES % (AUTO) 7.1 % (21.0-51.0); MEAN CORPUSCULAR HEMOGLOBIN 28.9 pg (27.0-33.0); MEAN CORPUSCULAR HGB CONC 31.9 g/dL (32.0-36.0); MEAN CORPUSCULAR VOLUME 90.5 fL (79-99); MONOCYTES % (AUTO) 7.6 % (3.0-13.0); NEUTROPHILS % (AUTO) 82.6 % (40.0-77.0); PLATELET COUNT (AUTO) 189 K/uL (130-400); RED BLOOD CELL COUNT(AUTO) 3.67 MIL/uL (4.50-6.20); RED CELL DISTRIBUTION WIDTH 14.9 % (11.0-15.5); WHITE BLOOD COUNT (AUTO) 9.4 K/uL (4.8-10.8)
[2022-05-15 20:01] LABS: POTASSIUM 3.6 mmol/L (3.5-5.1)
[2022-05-15 20:05] LABS: ALBUMIN 3.3 g/dL (3.5-5.0); TOTAL PROTEIN, SERUM 7.5 g/dL (6.0-8.3)
[2022-05-15 20:25] LABS: INR 0.93 (0.85-1.15); PROTHROMBIN TIME 10.2 SEC (9.6-11.6)
[2022-05-15 20:26] LABS: PARTIAL THROMBOPLASTIN TIME 25.9 SEC (26.3-35.5)
[2022-05-15 22:13] VITALS: BP 126/68
== END 2022-05-15 22:16 | disposition home or self-care (01) ==
LOC: EDH 17:05
DX: R31.9 Hematuria, unspecified (principal); T83.031A Leakage of indwelling urethral catheter, initial encounter; J44.9 Chronic obstructive pulmonary disease, unspecified; F20.9 Schizophrenia, unspecified; Z88.5 Allergy status to narcotic agent; Z79.899 Other long term (current) drug therapy; Z79.82 Long term (current) use of aspirin; Z98.890 Other specified postprocedural states
CPT/HCPCS: 36415; 80053; 85025; 85610; 85730

== ENCOUNTER 2022-05-19 19:20 | Emergency (ER) | payer OTHER ==
[~2022-05-19] VITALS: Ht 177.8 cm; Wt 130.6 kg
[2022-05-19 19:37] VITALS: BP 125/62
[2022-05-19 21:04] LABS: BASOPHILS % (AUTO) 0.5 % (0.0-5.0); EOSINOPHILS % (AUTO) 2.7 % (0.0-8.0); HEMATOCRIT 30.7 % (42-54); LYMPHOCYTES % (AUTO) 11.2 % (21.0-51.0); MEAN CORPUSCULAR HEMOGLOBIN 29.3 pg (27.0-33.0); MEAN CORPUSCULAR HGB CONC 32.2 g/dL (32.0-36.0); MEAN CORPUSCULAR VOLUME 90.8 fL (79-99); MONOCYTES % (AUTO) 7.9 % (3.0-13.0); NEUTROPHILS % (AUTO) 76.9 % (40.0-77.0); PLATELET COUNT (AUTO) 282 K/uL (130-400); RED BLOOD CELL COUNT(AUTO) 3.38 MIL/uL (4.50-6.20); RED CELL DISTRIBUTION WIDTH 14.7 % (11.0-15.5); WHITE BLOOD COUNT (AUTO) 8.4 K/uL (4.8-10.8)
[2022-05-19 21:13] LABS: CREATININE 0.8 mg/dL (0.5-1.5)
[2022-05-19 21:17] LABS: ALBUMIN 3.3 g/dL (3.5-5.0); TOTAL PROTEIN, SERUM 7.5 g/dL (6.0-8.3)
[2022-05-19 21:17] LABS: APPEARANCE,URINE CLOUDY (CLEAR); BILIRUBIN,URINE NEGATIVE (NEGATIVE); COLOR,URINE LIGHT-ORANGE (YELLOW); GLUCOSE, URINE (UA) NEGATIVE (NEGATIVE); KETONES,URINE NEGATIVE (NEGATIVE); LEUKOCYTE ESTERASE ,URINE 250 Leu/uL (NEGATIVE); NITRATE,URINE NEGATIVE (NEGATIVE); OCCULT BLOOD,URINE LARGE (NEGATIVE); PROTEIN,URINE 70 mg/dL (NEGATIVE); UROBILINOGEN,URINE 0.2 mg/dL (0.2-1.0)
[2022-05-19 21:22] LABS: BACTERIA,URINE RARE /HPF (None Seen); RBC,URINE TNTC /HPF (0-1); WBC,URINE 51-100 /HPF (0-1)
[2022-05-19] MEDS ORDERED: CEFTRIAXONE 1G VIAL IVP ONE (22:30)
[2022-05-19] MEDS ORDERED: AMPICILLIN/SULBAC 1.5GM VIAL IV ONE (22:30)
[2022-05-19] MEDS ORDERED: NITR100C4 PO (23:26)
[2022-05-19] MEDS ORDERED: NITROFURANTOIN MONOHYD/M-CRYST 100 MG CAPSULE PO ONE (23:30)
== END 2022-05-19 23:40 | disposition home or self-care (01) ==
LOC: EDH 19:20
DX: N39.0 Urinary tract infection, site not specified (principal); R31.9 Hematuria, unspecified; R30.0 Dysuria; F17.200 Nicotine dependence, unspecified, uncomplicated; J44.9 Chronic obstructive pulmonary disease, unspecified; F20.9 Schizophrenia, unspecified; Z79.51 Long term (current) use of inhaled steroids; Z79.52 Long term (current) use of systemic steroids; Z79.82 Long term (current) use of aspirin; Z79.899 Other long term (current) drug therapy
CPT/HCPCS: 99284; 74176; 96374; 96375; 80053; 85025; 87040 ×2; 87088; 83605; 81001; 36415; J0696; J0295

== ENCOUNTER 2022-07-10 23:03 | Emergency (ER) | payer OTHER ==
[~2022-07-10] VITALS: Ht 177.8 cm; Wt 130.2 kg
[~2022-07-10 23:03] MED LIST changes: +NITR100C4 PO
[2022-07-10] MEDS ORDERED: SOLU-MEDROL 125MG VIAL IVP ONE (23:30)
[2022-07-10] MEDS ORDERED: FAMOTIDINE 20MG VIAL IV ONE (23:30)
[2022-07-10] MEDS ORDERED: DiphenhydrAMINE HCL 50 MG/ML VIAL IV ONE (23:30)
[2022-07-10 23:45] LABS: BASOPHILS % (AUTO) 0.5 % (0.0-5.0); EOSINOPHILS % (AUTO) 1.8 % (0.0-8.0); HEMATOCRIT 34.2 % (42-54); LYMPHOCYTES % (AUTO) 19.5 % (21.0-51.0); MEAN CORPUSCULAR HEMOGLOBIN 30.9 pg (27.0-33.0); MEAN CORPUSCULAR HGB CONC 32.5 g/dL (32.0-36.0); MEAN CORPUSCULAR VOLUME 95.3 fL (79-99); MONOCYTES % (AUTO) 14.3 % (3.0-13.0); NEUTROPHILS % (AUTO) 62.8 % (40.0-77.0); PLATELET COUNT (AUTO) 258 K/uL (130-400); RED BLOOD CELL COUNT(AUTO) 3.59 MIL/uL (4.50-6.20); RED CELL DISTRIBUTION WIDTH 16.4 % (11.0-15.5); WHITE BLOOD COUNT (AUTO) 11.4 K/uL (4.8-10.8)
[2022-07-10 23:59] LABS: ALBUMIN 3.3 g/dL (3.5-5.0); CREATININE 1.1 mg/dL (0.5-1.5); POTASSIUM 3.8 mmol/L (3.5-5.1); TOTAL PROTEIN, SERUM 7.7 g/dL (6.0-8.3)
[2022-07-11 01:30] VITALS: BP 114/65
== END 2022-07-11 01:39 | disposition home or self-care (01) ==
LOC: EDH 23:03
DX: K14.0 Glossitis (principal); E11.9 Type 2 diabetes mellitus without complications; J44.9 Chronic obstructive pulmonary disease, unspecified; F17.200 Nicotine dependence, unspecified, uncomplicated; Z20.822 Contact with and (suspected) exposure to COVID-19; Z88.8 Allergy status to other drugs, medicaments and biological substances; Z79.899 Other long term (current) drug therapy; Z79.82 Long term (current) use of aspirin; Z98.890 Other specified postprocedural states
CPT/HCPCS: 99285; 96374; 71045; 96375; 87635; 84484; 80053; 85025; 87804 ×2; 36415; 93005; C9803; J1200; J3490; J2930

== ENCOUNTER 2022-09-29 02:47 | Emergency (ER) | payer OTHER ==
[~2022-09-29] VITALS: Ht 177.8 cm; Wt 130.2 kg
[~2022-09-29 02:47] MED LIST changes: -ACET-2079 PO; -ALBU0.63 IH; -ALBU90AE2 IH; -BISA-72 PO; +CARB-305 OP; -CARB1DRO39 OP; +COMBIVENT RESPIMAT IH; -DIPH50CA37 PO; -DOXY100T2 PO; +FAMO20TA8 PO; -FLUT1BLS12 IH; -GUAI120L62 PO; +LACT10SO5 PO; -LEVO25TA54 PO; -MACR100 PO; -NALO4SPR3 NS; -NICO-649 TD; -NITR100C4 PO; -PANT40TA54 PO; +POLY17PO52 PO; -POTA-79 PO; -PRED20TA3 PO; +PRIM50TA23 PO; -TORS100T16 PO; -[UNRECOGNIZED DRUG - CODE] PO
[2022-09-29 04:15] VITALS: BP 102/68
== END 2022-09-29 04:17 | disposition home or self-care (01) ==
LOC: EDH 02:47
DX: T83.018A Breakdown (mechanical) of other urinary catheter, initial encounter (principal); R33.9 Retention of urine, unspecified; J44.9 Chronic obstructive pulmonary disease, unspecified; F17.200 Nicotine dependence, unspecified, uncomplicated; Z79.82 Long term (current) use of aspirin; Z79.899 Other long term (current) drug therapy; Z88.2 Allergy status to sulfonamides; Y83.8 Other surgical procedures as the cause of abnormal reaction of the patient, or of later complication, without mention of misadventure at the time of the procedure; Y92.89 Other specified places as the place of occurrence of the external cause
CPT/HCPCS: 51702

== ENCOUNTER 2022-10-08 15:36 | Inpatient (IN) | payer MEDICARE, OTHER ==
[~2022-10-08] VITALS: Ht 177.8 cm; Wt 127.5 kg
[2022-10-08] MEDS ORDERED: ASPIRIN 81MG CHEW TAB PO ONE (16:00)
[2022-10-08 16:03] LABS: BASOPHILS % (AUTO) 0.5 % (0.0-5.0); EOSINOPHILS % (AUTO) 4.3 % (0.0-8.0); HEMATOCRIT 30.3 % (42-54); LYMPHOCYTES % (AUTO) 11.7 % (21.0-51.0); MEAN CORPUSCULAR HEMOGLOBIN 30.9 pg (27.0-33.0); MEAN CORPUSCULAR HGB CONC 33.7 g/dL (32.0-36.0); MEAN CORPUSCULAR VOLUME 91.8 fL (79-99); MONOCYTES % (AUTO) 14.1 % (3.0-13.0); PLATELET COUNT (AUTO) 267 K/uL (130-400); RED CELL DISTRIBUTION WIDTH 12.6 % (11.0-15.5); WHITE BLOOD COUNT (AUTO) 12.9 K/uL (4.8-10.8)
[2022-10-08 16:20] LABS: ALBUMIN 3.6 g/dL (3.5-5.0); CREATININE 1.4 mg/dL (0.5-1.5); TOTAL PROTEIN, SERUM 8.2 g/dL (6.0-8.3)
[2022-10-08] MEDS ORDERED: KCL 20 MEQ ERTAB PO ONE (16:52)
[2022-10-08] MEDS ORDERED: POTASSIUM CHLORIDE 10% ELIXIR 20 MEQ/15 ML UDCUP PO SCH (17:00)
[2022-10-08] MEDS ORDERED: 0.9%NACL 1000ML 1,000 ML IV SCH (18:00)
[2022-10-08] MEDS ORDERED: KETOROLAC 30MG VIAL (30MG/ML) IVP ONE (18:00)
[2022-10-08] MEDS ORDERED: IOHEXOL 350 MG/ML 100ML INFUS..BTL IV ONE (18:02)
[2022-10-08] MEDS ORDERED: NITROGLYCERIN 0.4 MG SL TAB SL PRN (23:30)
[2022-10-08] MEDS ORDERED: ONDANSETRON 4MG INJ IV PRN (23:30)
[2022-10-08] MEDS ORDERED: POTASSIUM CHLORIDE 20MEQ/100ML 100 ML IV PRN (23:30)
[2022-10-08] MEDS ORDERED: MORPHINE 2 MG SYG IV PRN (23:30)
[2022-10-08] MEDS ORDERED: POTASSIUM CHLORIDE 10% ELIXIR 20 MEQ/15 ML UDCUP PO PRN (23:30)
[2022-10-08] MEDS ORDERED: ACETAMINOPHEN 325 MG TAB PO PRN ×2 (23:30)
[2022-10-08] MEDS ORDERED: MAGNESIUM 2GM PREMIX 50ML 50 ML IV PRN (23:30)
[2022-10-09] MEDS: MORPHINE 4 MG SYG IV PRN ×2 (04:18→09:01)
[2022-10-09] MEDS: IPRATROPIUM/ALBUTEROL SULFATE 3 ML SOLUTION IH SCH ×4 (06:58→23:40)
[2022-10-09] MEDS: BUDESONIDE 0.5 MG/2 ML INH IH SCH ×2 (06:58→19:12)
[2022-10-09 07:40] VITALS: BP 144/81
[2022-10-09 07:42] LABS: BASOPHILS % (AUTO) 0.4 % (0.0-5.0); EOSINOPHILS % (AUTO) 5.6 % (0.0-8.0); HEMATOCRIT 32.7 % (42-54); LYMPHOCYTES % (AUTO) 14.3 % (21.0-51.0); MEAN CORPUSCULAR HEMOGLOBIN 30.3 pg (27.0-33.0); MEAN CORPUSCULAR HGB CONC 32.4 g/dL (32.0-36.0); MEAN CORPUSCULAR VOLUME 93.4 fL (79-99); MONOCYTES % (AUTO) 11.6 % (3.0-13.0); NEUTROPHILS % (AUTO) 66.4 % (40.0-77.0); PLATELET COUNT (AUTO) 261 K/uL (130-400); RED CELL DISTRIBUTION WIDTH 12.9 % (11.0-15.5); WHITE BLOOD COUNT (AUTO) 9.1 K/uL (4.8-10.8)
[2022-10-09 08:01] LABS: CREATININE 1.3 mg/dL (0.5-1.5); PHOSPHORUS 4.9 mg/dL (2.5-4.9); POTASSIUM 3.8 mmol/L (3.5-5.1)
[2022-10-09] MEDS: ASPIRIN 81MG CHEW TAB PO SCH (09:13)
[2022-10-09] MEDS: FAMOTIDINE 20MG TAB PO SCH (09:13)
[2022-10-09] MEDS: ENOXAPARIN SODIUM 40 MG/0.4 ML SYRINGE SQ SCH (09:14)
[2022-10-09 12:00] VITALS: BP 95/59
[2022-10-09 16:00] VITALS: BP 130/78
[2022-10-09] MEDS: DIVALPROEX SODIUM 250 MG TABLET.DR PO SCH (19:29)
[2022-10-09] MEDS: MIRTAZAPINE 15 MG TABLET PO SCH (19:29)
[2022-10-09] MEDS: QUETIAPINE FUMARATE 100 MG TAB PO SCH (19:29)
[2022-10-09 19:53] VITALS: BP 127/75
[2022-10-10 00:01] VITALS: BP 129/78
[2022-10-10] MEDS: IPRATROPIUM/ALBUTEROL SULFATE 3 ML SOLUTION IH SCH ×4 (06:29→23:11)
[2022-10-10] MEDS: BUDESONIDE 0.5 MG/2 ML INH IH SCH ×2 (06:29→19:02)
[2022-10-10 07:27] LABS: BASOPHILS % (AUTO) 0.5 % (0.0-5.0); EOSINOPHILS % (AUTO) 5.5 % (0.0-8.0); HEMATOCRIT 29.6 % (42-54); MEAN CORPUSCULAR HEMOGLOBIN 30.6 pg (27.0-33.0); MEAN CORPUSCULAR HGB CONC 32.4 g/dL (32.0-36.0); MEAN CORPUSCULAR VOLUME 94.3 fL (79-99); MONOCYTES % (AUTO) 13.8 % (3.0-13.0); NEUTROPHILS % (AUTO) 67.4 % (40.0-77.0); PLATELET COUNT (AUTO) 236 K/uL (130-400); RED BLOOD CELL COUNT(AUTO) 3.14 MIL/uL (4.50-6.20); RED CELL DISTRIBUTION WIDTH 12.9 % (11.0-15.5); WHITE BLOOD COUNT (AUTO) 9.5 K/uL (4.8-10.8)
[2022-10-10 08:00] VITALS: BP 106/69
[2022-10-10 08:00] LABS: ALBUMIN 2.9 g/dL (3.5-5.0); POTASSIUM 3.4 mmol/L (3.5-5.1); TOTAL PROTEIN, SERUM 7.1 g/dL (6.0-8.3)
[2022-10-10] MEDS: LACTULOSE 20 GM/30 ML UDCUP PO SCH ×3 (08:53→20:20)
[2022-10-10] MEDS: FAMOTIDINE 20MG TAB PO SCH (08:54)
[2022-10-10] MEDS: ENOXAPARIN SODIUM 40 MG/0.4 ML SYRINGE SQ SCH (08:54)
[2022-10-10] MEDS: ASPIRIN 81MG CHEW TAB PO SCH (08:54)
[2022-10-10] MEDS ORDERED: PREDNISONE 20 MG TABLET PO SCH (09:00)
[2022-10-10] MEDS: KCL 20 MEQ ERTAB PO PRN ×2 (09:05→18:32)
[2022-10-10 12:00] VITALS: BP 122/69
[2022-10-10 16:00] VITALS: BP 97/61
[2022-10-10] MEDS ORDERED: PHARMACY COMMUNICATION MISC SCH (16:00)
[2022-10-10] MEDS: DOCUSATE NA 100MG/10ML UDCUP PO SCH ×2 (16:24→20:19)
[2022-10-10] MEDS: SENNOSIDES 8.6 MG TABLET PO SCH ×2 (16:24→20:20)
[2022-10-10] MEDS ORDERED: BUDESONIDE 0.25 MG/2 ML INH IH ONE (19:18)
[2022-10-10 20:00] VITALS: BP 129/72
[2022-10-10] MEDS: MIRTAZAPINE 15 MG TABLET PO SCH (20:20)
[2022-10-10] MEDS: QUETIAPINE FUMARATE 100 MG TAB PO SCH (20:21)
[2022-10-10] MEDS: DIVALPROEX SODIUM 250 MG TABLET.DR PO SCH (20:21)
[2022-10-11] VITALS: BP 112/72
[2022-10-11 04:00] VITALS: BP 138/59
[2022-10-11] MEDS: BUDESONIDE 0.5 MG/2 ML INH IH SCH (06:22)
[2022-10-11] MEDS: IPRATROPIUM/ALBUTEROL SULFATE 3 ML SOLUTION IH SCH (06:22)
[2022-10-11 08:00] VITALS: BP 117/66
== END 2022-10-11 11:40 | disposition home or self-care (01) | DRG 206 ==
LOC: EDH 15:36 → EDHIP 23:15 → UNDOADMIN 23:15 → 4BH 23:15
PROVIDERS: ADMIT Internal Medicine; ATTEND Internal Medicine
DX: M94.0 Chondrocostal junction syndrome [Tietze] (principal); E66.2 Morbid (severe) obesity with alveolar hypoventilation; J96.12 Chronic respiratory failure with hypercapnia; Z68.41 Body mass index [BMI] 40.0-44.9, adult; F25.9 Schizoaffective disorder, unspecified; I50.9 Heart failure, unspecified; J44.9 Chronic obstructive pulmonary disease, unspecified; I11.0 Hypertensive heart disease with heart failure; E87.6 Hypokalemia; D72.829 Elevated white blood cell count, unspecified; K59.00 Constipation, unspecified; N40.0 Benign prostatic hyperplasia without lower urinary tract symptoms; F17.210 Nicotine dependence, cigarettes, uncomplicated; Z79.82 Long term (current) use of aspirin; Z85.118 Personal history of other malignant neoplasm of bronchus and lung; Z86.73 Personal history of transient ischemic attack (TIA), and cerebral infarction without residual deficits
CPT/HCPCS: 36415; 71045; 71270; 74018; 80048; 80053; 83735; 83880; 84100; 84132; 84484; 85025; 87040; 93005; 94640; 94664; G0378; J1650; J1885; J2270; J3480; J7030; Q9967

== ENCOUNTER 2022-10-11 13:41 | Emergency (ER) | payer OTHER, MEDICARE ==
[~2022-10-11] VITALS: Ht 177.8 cm; Wt 127.0 kg
[2022-10-11 13:42] VITALS: BP 117/54
== END 2022-10-11 14:28 | disposition home or self-care (01) ==
LOC: EDH 13:41
DX: T83.091A Other mechanical complication of indwelling urethral catheter, initial encounter (principal); E11.9 Type 2 diabetes mellitus without complications; J44.9 Chronic obstructive pulmonary disease, unspecified; Z79.899 Other long term (current) drug therapy

== ENCOUNTER 2022-11-27 13:03 | Emergency (ER) | payer OTHER ==
[~2022-11-27] VITALS: Ht 177.8 cm; Wt 130.2 kg
[~2022-11-27 13:03] MED LIST changes: +AMOX1TAB16 PO; -LATA7.5D OU; -LEVO-70 PO; +METO2.5T2 PO; -MIRT-22 PO; +PANT40TA54 PO; +PARO-37 PO; +PLEC3TAB2 PO; +POTA-364 PO; +PRED20TA3 PO; +SPIR25TA6 PO; +TORS20TA4 PO
[2022-11-27 13:56] LABS: APPEARANCE,URINE CLEAR (CLEAR); BILIRUBIN,URINE NEGATIVE (NEGATIVE); COLOR,URINE LIGHT-YELLOW (YELLOW); GLUCOSE, URINE (UA) NEGATIVE (NEGATIVE); KETONES,URINE NEGATIVE (NEGATIVE); LEUKOCYTE ESTERASE ,URINE NEGATIVE Leu/uL (NEGATIVE); NITRATE,URINE NEGATIVE (NEGATIVE); OCCULT BLOOD,URINE NEGATIVE (NEGATIVE); PH,URINE 6.5 (5.0-8.0); PROTEIN,URINE NEGATIVE (NEGATIVE); UROBILINOGEN,URINE 0.2 mg/dL (0.2-1.0)
[2022-11-27 15:20] VITALS: BP 143/69
== END 2022-11-27 15:29 | disposition home or self-care (01) ==
LOC: EDH 13:03
DX: I11.0 Hypertensive heart disease with heart failure (principal); I50.9 Heart failure, unspecified; E11.9 Type 2 diabetes mellitus without complications; J44.9 Chronic obstructive pulmonary disease, unspecified; F17.200 Nicotine dependence, unspecified, uncomplicated; Z79.52 Long term (current) use of systemic steroids; Z79.82 Long term (current) use of aspirin; Z79.899 Other long term (current) drug therapy; Z85.118 Personal history of other malignant neoplasm of bronchus and lung; Z88.2 Allergy status to sulfonamides
CPT/HCPCS: 51702; 81003

== ENCOUNTER 2023-01-15 18:17 | Emergency (ER) | payer OTHER ==
[~2023-01-15] VITALS: Ht 177.8 cm; Wt 127.0 kg
[2023-01-15 18:18] VITALS: BP 124/72; PULSE 78; RESP 20
== END 2023-01-15 23:09 | disposition left against medical advice (07) ==
LOC: EDH 18:17
DX: T85.9XXA Unspecified complication of internal prosthetic device, implant and graft, initial encounter (principal); Z53.21 Procedure and treatment not carried out due to patient leaving prior to being seen by health care provider; Y65.8 Other specified misadventures during surgical and medical care; Y92.9 Unspecified place or not applicable
CPT/HCPCS: 99281

== ENCOUNTER 2023-03-25 17:16 | Inpatient (IN) | payer OTHER ==
[~2023-03-25] VITALS: Ht 177.8 cm; Wt 117.7 kg
[~2023-03-25 17:16] MED LIST changes: -AMOX1TAB16 PO; +AZIT1PAC PO; -CARB-305 OP; -COMBIVENT RESPIMAT IH; +DOCU100T PO; +FERR-72 PO; +FOLI0.8T2 PO; -LACT10SO5 PO; +LATA2.5D14 OP; +LINA145C PO; +LUBI24CA9 PO; +METH4TAB3 PO; +MOME13HF12 IH; -PARO-37 PO; +PARO40TA72 PO; -PLEC3TAB2 PO; -POLY17PO52 PO; -PRED20TA3 PO; -PRIM50TA23 PO; -SERT-440 PO; -SIMV40TA59 PO
[2023-03-25 17:53] LABS: BASOPHILS # (AUTO) 0.05 K/uL (0.00-0.20); BASOPHILS % (AUTO) 0.5 % (0.0-5.0); EOSINOPHILS # (AUTO) 0.66 K/uL (0.00-0.70); EOSINOPHILS % (AUTO) 6.1 % (0.0-8.0); HEMATOCRIT 29.8 % (42-54); IMMATURE GRANULOCYTE ABSOLUTE 0.09 K/uL (0-1); LYMPHOCYTES # (AUTO) 1.6 K/uL (1.0-4.8); LYMPHOCYTES % (AUTO) 14.9 % (21.0-51.0); MEAN CORPUSCULAR HEMOGLOBIN 31.6 pg (27.0-33.0); MEAN CORPUSCULAR HGB CONC 32.9 g/dL (32.0-36.0); MEAN CORPUSCULAR VOLUME 96.1 fL (79-99); MONOCYTES # (AUTO) 1.8 K/uL (0.1-1.0); MONOCYTES % (AUTO) 16.5 % (3.0-13.0); NEUTROPHILS # (AUTO) 6.6 K/uL (1.8-7.7); NEUTROPHILS % (AUTO) 61.2 % (40.0-77.0); PLATELET COUNT (AUTO) 204 K/uL (130-400); WHITE BLOOD COUNT (AUTO) 10.8 K/uL (4.8-10.8)
[2023-03-25 18:00] LABS: CREATININE 1.4 mg/dL (0.5-1.5)
[2023-03-25 18:05] LABS: ALBUMIN 3.2 g/dL (3.5-5.0); BILIRUBIN,TOTAL 0.3 mg/dL (0.2-1.0); TOTAL PROTEIN, SERUM 7.8 g/dL (6.0-8.3)
[2023-03-25 18:17] LABS: B-TYPE NATRIURETIC PEPTIDE 45 pg/mL (0-100)
[2023-03-25] MEDS ORDERED: IOHEXOL-350 75 ML VIAL IV ONE (19:39)
[2023-03-25 20:10] LABS: SARS-CoV-2, RNA, NAAT NEGATIVE SARS CoV-2 (NEGATIVE)
[2023-03-25 20:19] LABS: INFLUENZA TYPE A Negative For Type A (NEGATIVE); INFLUENZA TYPE B Negative For Type B (NEGATIVE)
[2023-03-25] MEDS ORDERED: MORPHINE 4 MG SYG IV PRN (21:00)
[2023-03-25] MEDS ORDERED: ONDANSETRON 4MG INJ IV PRN (21:00)
[2023-03-25] MEDS ORDERED: ACETAMINOPHEN 325 MG TAB PO PRN ×2 (21:00)
[2023-03-25] MEDS ORDERED: MORPHINE 2 MG SYG IV PRN (21:00)
[2023-03-25 21:38] LABS: ADD UA MICROSCOPIC YES; APPEARANCE,URINE CLEAR (CLEAR); BILIRUBIN,URINE NEGATIVE (NEGATIVE); COLOR,URINE LIGHT-YELLOW (YELLOW); GLUCOSE, URINE (UA) NEGATIVE (NEGATIVE); KETONES,URINE NEGATIVE (NEGATIVE); LEUKOCYTE ESTERASE ,URINE NEGATIVE Leu/uL (NEGATIVE); NITRATE,URINE NEGATIVE (NEGATIVE); OCCULT BLOOD,URINE NEGATIVE (NEGATIVE); PH,URINE 5.5 (5.0-8.0); PROTEIN,URINE NEGATIVE (NEGATIVE); UROBILINOGEN,URINE 0.2 mg/dL (0.2-1.0)
[2023-03-25 21:39] LABS: RBC,URINE 0-1 /HPF (0-1); SQUAMOUS EPITHELIAL CELL,UR RARE /HPF (0-2)
[2023-03-25 21:55] VITALS: BP 112/68; PULSE 77; RESP 20
[2023-03-25] MEDS ORDERED: 0.9%NACL 50ML IV SCH (22:00)
[2023-03-25 22:15] VITALS: O2SAT 96
[2023-03-25] MEDS: ZOSYN 3.375GM +NS 50ML IVPB SCH (22:51)
[2023-03-25] MEDS ORDERED: SODIUM CHLORIDE 3% FOR INHALATION 4 ML/AMP VIAL.NEB IH ONE (23:14)
[2023-03-25 23:28] VITALS: PULSE 79; RESP 18; O2SAT 94
[2023-03-25] MEDS: ALBUTEROL 0.083% 2.5 MG/3 ML INH IH SCH (23:28)
[2023-03-26] VITALS (15 sets, daily range): BP systolic 96–123; BP diastolic 49–71; PULSE 71–89; RESP 18–24; O2SAT 95–97
[2023-03-26 04:30] LABS: BASOPHILS # (AUTO) 0.03 K/uL (0.00-0.20); BASOPHILS % (AUTO) 0.3 % (0.0-5.0); EOSINOPHILS # (AUTO) 0.62 K/uL (0.00-0.70); EOSINOPHILS % (AUTO) 7.1 % (0.0-8.0); HEMATOCRIT 31.2 % (42-54); IMMATURE GRANULOCYTE ABSOLUTE 0.09 K/uL (0-1); LYMPHOCYTES # (AUTO) 1.4 K/uL (1.0-4.8); LYMPHOCYTES % (AUTO) 16.4 % (21.0-51.0); MEAN CORPUSCULAR HEMOGLOBIN 31.3 pg (27.0-33.0); MEAN CORPUSCULAR HGB CONC 31.7 g/dL (32.0-36.0); MEAN CORPUSCULAR VOLUME 98.7 fL (79-99); MONOCYTES # (AUTO) 1.3 K/uL (0.1-1.0); MONOCYTES % (AUTO) 14.7 % (3.0-13.0); NEUTROPHILS # (AUTO) 5.3 K/uL (1.8-7.7); NEUTROPHILS % (AUTO) 60.5 % (40.0-77.0); PLATELET COUNT (AUTO) 192 K/uL (130-400); RED BLOOD CELL COUNT(AUTO) 3.16 MIL/uL (4.50-6.20); WHITE BLOOD COUNT (AUTO) 8.8 K/uL (4.8-10.8)
[2023-03-26 04:41] LABS: INR < 0.93 (0.85-1.15); PROTHROMBIN TIME 10.5 SEC (9.6-11.6)
[2023-03-26 04:42] LABS: PARTIAL THROMBOPLASTIN TIME 27.8 SEC (26.3-35.5)
[2023-03-26 04:45] LABS: ALBUMIN 2.9 g/dL (3.5-5.0); BILIRUBIN,TOTAL 0.2 mg/dL (0.2-1.0); CREATININE 1.4 mg/dL (0.5-1.5); MAGNESIUM 1.7 mg/dL (1.80-2.40); PHOSPHORUS 5.1 mg/dL (2.5-4.9); POTASSIUM 4.1 mmol/L (3.5-5.1); TOTAL PROTEIN, SERUM 7.4 g/dL (6.0-8.3)
[2023-03-26] MEDS ORDERED: SODIUM CHLORIDE 3% FOR INHALATION 4 ML/AMP VIAL.NEB IH ONE ×2 (05:59→10:55)
[2023-03-26] MEDS: BUDESONIDE 0.5 MG/2 ML INH IH SCH ×2 (06:30→18:13)
[2023-03-26] MEDS: ALBUTEROL 0.083% 2.5 MG/3 ML INH IH SCH ×4 (06:30→22:58)
[2023-03-26] MEDS: ZOSYN 3.375GM +NS 50ML IVPB SCH ×4 (06:39→22:26)
[2023-03-26] MEDS: FAMOTIDINE 20MG VIAL IV SCH (09:25)
[2023-03-26] MEDS ORDERED: IOHEXOL-350 75 ML VIAL IV ONE (09:31)
[2023-03-26] MEDS ORDERED: 0.9%NACL 50ML IV SCH (16:00)
[2023-03-26] MEDS: SOLU-MEDROL 40MG VIAL IVP SCH (17:00)
[2023-03-26] MEDS: AZITHROMYCIN 250 MG TABLET PO SCH (17:50)
[2023-03-27] VITALS (16 sets, daily range): BP systolic 103–117; BP diastolic 59–66; PULSE 70–93; RESP 18–20; O2SAT 96–98
[2023-03-27] MEDS: SOLU-MEDROL 40MG VIAL IVP SCH ×3 (01:10→20:20)
[2023-03-27 03:23] LABS: ABG BASE EXCESS 2.4 mmol/L (-2.0-3.0); ABG HCO3 29.8 mmol/L (21.0-28.0); ABG OXYGEN SATURATION 94.1 % (95.0-99.0); ABG PCO2 57 mmHg (35-48); ABG PH 7.334 (7.35-7.450); DEVICE COMMENT NURSE; PO2, ARTERIAL BG 76.1 mmHg (83.0-108.0); VENT MODE, BG 2 L NC (ROOM AIR)
[2023-03-27 04:12] LABS: BASOPHILS # (AUTO) 0.02 K/uL (0.00-0.20); BASOPHILS % (AUTO) 0.2 % (0.0-5.0); EOSINOPHILS # (AUTO) 0.02 K/uL (0.00-0.70); EOSINOPHILS % (AUTO) 0.2 % (0.0-8.0); HEMATOCRIT 30.2 % (42-54); LYMPHOCYTES # (AUTO) 0.5 K/uL (1.0-4.8); LYMPHOCYTES % (AUTO) 5.6 % (21.0-51.0); MEAN CORPUSCULAR HEMOGLOBIN 31.9 pg (27.0-33.0); MEAN CORPUSCULAR HGB CONC 32.5 g/dL (32.0-36.0); MEAN CORPUSCULAR VOLUME 98.4 fL (79-99); MONOCYTES # (AUTO) 0.5 K/uL (0.1-1.0); MONOCYTES % (AUTO) 5.5 % (3.0-13.0); NEUTROPHILS # (AUTO) 7.9 K/uL (1.8-7.7); NEUTROPHILS % (AUTO) 87.4 % (40.0-77.0); PLATELET COUNT (AUTO) 203 K/uL (130-400); RED BLOOD CELL COUNT(AUTO) 3.07 MIL/uL (4.50-6.20); RED CELL DISTRIBUTION WIDTH 13.9 % (11.0-15.5)
[2023-03-27 04:23] LABS: CREATININE 1.5 mg/dL (0.5-1.5); POTASSIUM 4.8 mmol/L (3.5-5.1)
[2023-03-27 04:29] LABS: ALBUMIN 2.9 g/dL (3.5-5.0); BILIRUBIN,TOTAL 0.2 mg/dL (0.2-1.0); TOTAL PROTEIN, SERUM 7.8 g/dL (6.0-8.3)
[2023-03-27] MEDS: ZOSYN 3.375GM +NS 50ML IVPB SCH ×4 (05:24→22:10)
[2023-03-27] MEDS: BUDESONIDE 0.5 MG/2 ML INH IH SCH ×2 (06:45→18:20)
[2023-03-27] MEDS: ALBUTEROL 0.083% 2.5 MG/3 ML INH IH SCH ×4 (06:45→23:05)
[2023-03-27] MEDS ORDERED: SIMV40TA59 PO (09:50)
[2023-03-27] MEDS ORDERED: CHOL-34 PO (09:50)
[2023-03-27] MEDS: FAMOTIDINE 20MG VIAL IV SCH (09:52)
[2023-03-27] MEDS ORDERED: POTASSIUM CHLORIDE 40 MEQ PO SCH (14:00)
[2023-03-27] MEDS: ASPIRIN 81 MG EC TAB PO SCH (14:30)
[2023-03-27] MEDS: AZITHROMYCIN 250 MG TABLET PO SCH (17:21)
[2023-03-27] MEDS: SPIRONOLACTONE 25 MG TAB PO SCH (20:21)
[2023-03-27] MEDS: TORSEMIDE 20 MG TAB PO SCH (20:21)
[2023-03-27] MEDS: KCL 20 MEQ ERTAB PO SCH (20:21)
[2023-03-27] MEDS: DOCUSATE SODIUM 100 MG CAP PO SCH (20:21)
[2023-03-27] MEDS: ATORVASTATIN 40 MG TABLET PO SCH (20:22)
[2023-03-27] MEDS: DIVALPROEX SODIUM 1500 MG PO SCH (20:22)
[2023-03-27] MEDS: TAMSULOSIN HCL 0.4 MG CAP.ER.24H PO SCH (20:22)
[2023-03-27] MEDS: PAROXETINE HCL 20 MG TABLET PO SCH (20:22)
[2023-03-27] MEDS ORDERED: PAROXETINE HCL 20 MG PO SCH (21:00)
[2023-03-27] MEDS ORDERED: NON-FORMULARY MEDICATION 1 EACH (Docusate Sodium 100 MG) PO SCH (21:00)
[2023-03-27] MEDS ORDERED: NON-FORMULARY MEDICATION 1 EACH (Simvastatin (Zocor) 80 MG) PO SCH (21:00)
[2023-03-28] VITALS (11 sets, daily range): BP systolic 93–112; BP diastolic 54–75; PULSE 59–78; RESP 16–22; O2SAT 96–98
[2023-03-28] MEDS: ALBUTEROL 0.083% 2.5 MG/3 ML INH IH SCH ×3 (06:28→23:44)
[2023-03-28] MEDS: BUDESONIDE 0.5 MG/2 ML INH IH SCH ×2 (06:28→18:00)
[2023-03-28] MEDS: ZOSYN 3.375GM +NS 50ML IVPB SCH ×3 (06:40→22:18)
[2023-03-28] MEDS ORDERED: CHOL-34 PO (07:27)
[2023-03-28] MEDS ORDERED: NON-FORMULARY MEDICATION 1 EACH (Ferrous Sulfate 325 MG) PO SCH (09:00)
[2023-03-28] MEDS: FERROUS SULFATE 325 MG TABLET.DR PO SCH (09:37)
[2023-03-28] MEDS: DOCUSATE SODIUM 100 MG CAP PO SCH ×2 (09:37→21:00)
[2023-03-28] MEDS: PANTOPRAZOLE 40 MG TAB DR PO SCH (09:37)
[2023-03-28] MEDS: TORSEMIDE 20 MG TAB PO SCH ×2 (09:37→21:00)
[2023-03-28] MEDS: KCL 20 MEQ ERTAB PO SCH ×3 (09:37→20:19)
[2023-03-28] MEDS: SPIRONOLACTONE 25 MG TAB PO SCH ×2 (09:38→21:00)
[2023-03-28] MEDS: FAMOTIDINE 20MG VIAL IV SCH (09:38)
[2023-03-28] MEDS: SOLU-MEDROL 40MG VIAL IVP SCH ×2 (09:38→20:11)
[2023-03-28] MEDS: ASPIRIN 81 MG EC TAB PO SCH (14:12)
[2023-03-28] MEDS: AZITHROMYCIN 250 MG TABLET PO SCH (17:25)
[2023-03-28] MEDS: GABAPENTIN 100 MG CAPSULE PO SCH (21:00)
[2023-03-28] MEDS: DIVALPROEX SODIUM 1500 MG PO SCH (21:00)
[2023-03-28] MEDS: TAMSULOSIN HCL 0.4 MG CAP.ER.24H PO SCH (21:00)
[2023-03-28] MEDS: ATORVASTATIN 40 MG TABLET PO SCH (21:00)
[2023-03-28] MEDS: PAROXETINE HCL 20 MG TABLET PO SCH (21:00)
[2023-03-29] VITALS (14 sets, daily range): BP systolic 98–126; BP diastolic 57–79; PULSE 61–96; RESP 17–22; O2SAT 93–100
[2023-03-29] MEDS: ZOSYN 3.375GM +NS 50ML IVPB SCH ×3 (05:06→22:07)
[2023-03-29 06:10] LABS: BASOPHILS # (AUTO) 0.04 K/uL (0.00-0.20); BASOPHILS % (AUTO) 0.4 % (0.0-5.0); EOSINOPHILS # (AUTO) 0.02 K/uL (0.00-0.70); EOSINOPHILS % (AUTO) 0.2 % (0.0-8.0); HEMATOCRIT 32.4 % (42-54); IMMATURE GRANULOCYTE ABSOLUTE 0.25 K/uL (0-1); LYMPHOCYTES # (AUTO) 1.3 K/uL (1.0-4.8); LYMPHOCYTES % (AUTO) 12.5 % (21.0-51.0); MEAN CORPUSCULAR HEMOGLOBIN 31.5 pg (27.0-33.0); MEAN CORPUSCULAR HGB CONC 31.5 g/dL (32.0-36.0); MONOCYTES # (AUTO) 1.2 K/uL (0.1-1.0); MONOCYTES % (AUTO) 11.1 % (3.0-13.0); NEUTROPHILS # (AUTO) 7.6 K/uL (1.8-7.7); NEUTROPHILS % (AUTO) 73.4 % (40.0-77.0); PLATELET COUNT (AUTO) 254 K/uL (130-400); RED BLOOD CELL COUNT(AUTO) 3.24 MIL/uL (4.50-6.20); RED CELL DISTRIBUTION WIDTH 14.2 % (11.0-15.5); WHITE BLOOD COUNT (AUTO) 10.4 K/uL (4.8-10.8)
[2023-03-29 06:26] LABS: ALBUMIN 3.1 g/dL (3.5-5.0); BILIRUBIN,TOTAL 0.1 mg/dL (0.2-1.0); CREATININE 1.4 mg/dL (0.5-1.5); POTASSIUM 4.9 mmol/L (3.5-5.1); TOTAL PROTEIN, SERUM 7.9 g/dL (6.0-8.3)
[2023-03-29] MEDS: ALBUTEROL 0.083% 2.5 MG/3 ML INH IH SCH ×4 (07:15→23:54)
[2023-03-29] MEDS: BUDESONIDE 0.5 MG/2 ML INH IH SCH ×2 (07:15→19:39)
[2023-03-29] MEDS: FERROUS SULFATE 325 MG TABLET.DR PO SCH (09:30)
[2023-03-29] MEDS: GABAPENTIN 100 MG CAPSULE PO SCH ×3 (09:30→20:26)
[2023-03-29] MEDS: PANTOPRAZOLE 40 MG TAB DR PO SCH (09:30)
[2023-03-29] MEDS: TORSEMIDE 20 MG TAB PO SCH ×2 (09:30→20:25)
[2023-03-29] MEDS: SPIRONOLACTONE 25 MG TAB PO SCH ×2 (09:30→20:26)
[2023-03-29] MEDS: KCL 20 MEQ ERTAB PO SCH ×3 (09:31→20:25)
[2023-03-29] MEDS: DOCUSATE SODIUM 100 MG CAP PO SCH ×2 (09:31→20:25)
[2023-03-29] MEDS: FAMOTIDINE 20MG VIAL IV SCH (09:31)
[2023-03-29] MEDS: SOLU-MEDROL 40MG VIAL IVP SCH (09:31)
[2023-03-29] MEDS ORDERED: ALBUTEROL 0.083% 2.5 MG/3 ML INH IH ONE (10:44)
[2023-03-29] MEDS: ASPIRIN 81 MG EC TAB PO SCH (13:22)
[2023-03-29] MEDS: AZITHROMYCIN 250 MG TABLET PO SCH (17:40)
[2023-03-29] MEDS ORDERED: PREDNISONE 20 MG TABLET PO ONE (20:00)
[2023-03-29] MEDS: TAMSULOSIN HCL 0.4 MG CAP.ER.24H PO SCH (20:25)
[2023-03-29] MEDS: ATORVASTATIN 40 MG TABLET PO SCH (20:25)
[2023-03-29] MEDS: PAROXETINE HCL 20 MG TABLET PO SCH (20:26)
[2023-03-29] MEDS: DIVALPROEX SODIUM 1500 MG PO SCH (20:26)
[2023-03-30] VITALS (7 sets, daily range): BP systolic 82–111; BP diastolic 56–76; PULSE 65–90; RESP 18–20; O2SAT 97–100
[2023-03-30 04:34] LABS: ABG BASE EXCESS 5.7 mmol/L (-2.0-3.0); ABG HCO3 32.8 mmol/L (21.0-28.0); ABG OXYGEN SATURATION 97.2 % (95.0-99.0); ABG PCO2 58 mmHg (35-48); ABG PH 7.373 (7.35-7.450); PO2, ARTERIAL BG 98.8 mmHg (83.0-108.0); VENT MODE, BG NC (ROOM AIR)
[2023-03-30] MEDS: ZOSYN 3.375GM +NS 50ML IVPB SCH (06:01)
[2023-03-30 06:27] LABS: HEMATOCRIT 33.5 % (42-54); MEAN CORPUSCULAR HEMOGLOBIN 31.3 pg (27.0-33.0); MEAN CORPUSCULAR HGB CONC 31.3 g/dL (32.0-36.0); RED BLOOD CELL COUNT(AUTO) 3.35 MIL/uL (4.50-6.20); RED CELL DISTRIBUTION WIDTH 14.3 % (11.0-15.5); WHITE BLOOD COUNT (AUTO) 11.5 K/uL (4.8-10.8)
[2023-03-30 06:31] LABS: ALBUMIN 3.2 g/dL (3.5-5.0); BILIRUBIN,TOTAL 0.2 mg/dL (0.2-1.0); CREATININE 1.9 mg/dL (0.5-1.5); MAGNESIUM 2.2 mg/dL (1.80-2.40); PHOSPHORUS 4.9 mg/dL (2.5-4.9); POTASSIUM 4.6 mmol/L (3.5-5.1)
[2023-03-30] MEDS: BUDESONIDE 0.5 MG/2 ML INH IH SCH (07:16)
[2023-03-30] MEDS: ALBUTEROL 0.083% 2.5 MG/3 ML INH IH SCH (07:16)
[2023-03-30] MEDS ORDERED: PREDNISONE 20 MG TABLET PO SCH (09:00)
[2023-03-30] MEDS: FERROUS SULFATE 325 MG TABLET.DR PO SCH (09:32)
[2023-03-30] MEDS: KCL 20 MEQ ERTAB PO SCH (09:33)
[2023-03-30] MEDS: DOCUSATE SODIUM 100 MG CAP PO SCH (09:33)
[2023-03-30] MEDS: PANTOPRAZOLE 40 MG TAB DR PO SCH (09:33)
[2023-03-30] MEDS: TORSEMIDE 20 MG TAB PO SCH (09:33)
[2023-03-30] MEDS: SPIRONOLACTONE 25 MG TAB PO SCH (09:33)
[2023-03-30] MEDS: GABAPENTIN 100 MG CAPSULE PO SCH (09:33)
[2023-03-30] MEDS: FAMOTIDINE 20MG VIAL IV SCH (09:34)
[2023-03-30] MEDS ORDERED: AZIT500T4 PO (11:10)
[2023-03-30] MEDS ORDERED: AMOX1TAB15 PO (11:11)
[2023-03-30] MEDS ORDERED: PRED20TA3 PO (11:11)
== END 2023-03-30 13:00 | disposition home or self-care (01) | DRG 177 ==
LOC: EDH 17:16 → EDHIP 19:02 → 2AH 21:50 → 3CH 03-28 16:50
PROVIDERS: ADMIT Internal Medicine; ATTEND Internal Medicine
DX: J69.0 Pneumonitis due to inhalation of food and vomit (principal); J96.21 Acute and chronic respiratory failure with hypoxia; J96.22 Acute and chronic respiratory failure with hypercapnia; J44.1 Chronic obstructive pulmonary disease with (acute) exacerbation; E66.2 Morbid (severe) obesity with alveolar hypoventilation; I50.32 Chronic diastolic (congestive) heart failure; J44.0 Chronic obstructive pulmonary disease with (acute) lower respiratory infection; D68.59 Other primary thrombophilia; C34.91 Malignant neoplasm of unspecified part of right bronchus or lung; I11.0 Hypertensive heart disease with heart failure; D64.9 Anemia, unspecified; E78.5 Hyperlipidemia, unspecified; F17.210 Nicotine dependence, cigarettes, uncomplicated; N40.0 Benign prostatic hyperplasia without lower urinary tract symptoms; F25.9 Schizoaffective disorder, unspecified; E83.42 Hypomagnesemia; Z86.73 Personal history of transient ischemic attack (TIA), and cerebral infarction without residual deficits; Z68.38 Body mass index [BMI] 38.0-38.9, adult; Z99.81 Dependence on supplemental oxygen; Z85.118 Personal history of other malignant neoplasm of bronchus and lung; Z95.820 Peripheral vascular angioplasty status with implants and grafts; Z88.2 Allergy status to sulfonamides
CPT/HCPCS: 36415; 36600; 70498; 71270; 73620; 80053; 81001; 82803; 83605; 83735; 83880; 84100; 84145; 84484; 85025; 85027; 85378; 85610; 85730; 86850; 86900; 86901; 87071; 87205; 87635; 87804; 92610; 93005; 93925; 94640; 94664; G0378; J2270; J2543; J2920; J3490; Q9967; A4600; G8980-CI; G8983-CI

== ENCOUNTER → 2023-04-23 | Outpatient (CLI) | payer OTHER ==
[~2023-04-23] MED LIST changes: +AMOX1TAB15 PO; -AZIT1PAC PO; +AZIT500T4 PO; +CHOL-34 PO; -DOCU100C33 PO; -FAMO20TA8 PO; +IOHEXOL-350 75 ML VIAL IV ONE; -LOSA50TA64 PO; -LUBI24CA9 PO; -METH4TAB3 PO; -METO2.5T2 PO; +PRED20TA3 PO; +SIMV40TA59 PO
== END | disposition home or self-care (01) ==
LOC: RAH 08:03
PROVIDERS: ATTEND Internal Medicine Cardiovascular Disease
DX: I65.22 Occlusion and stenosis of left carotid artery (principal); R07.9 Chest pain, unspecified; I70.8 Atherosclerosis of other arteries
CPT/HCPCS: 70496; 70498; Q9967

== ENCOUNTER 2023-09-03 20:29 | Emergency (ER) | payer OTHER ==
[~2023-09-03] VITALS: Ht 177.8 cm; Wt 136.1 kg
[~2023-09-03 20:29] MED LIST changes: -AMOX1TAB15 PO; -AZIT500T4 PO; +BRIM5DRO5 OP; +CARB1DRO40 OP; -DOCU100T PO; +FENO48TA10 PO; -FERR-72 PO; +FERS325 PO; +GABA-529 PO; +GUAI100S13 PO; -IOHEXOL-350 75 ML VIAL IV ONE; -LATA2.5D14 OP; -MOME13HF12 IH; -PANT40TA54 PO; -POTA-364 PO; +POTA-79 PO; -PRED20TA3 PO; +ROSU20TA73 PO; -SIMV40TA59 PO; -SPIR25TA6 PO; -TAMS-1 PO; -TORS20TA4 PO
[2023-09-03 20:30] VITALS: BP 110/57; PULSE 79; RESP 20
[2023-09-03 21:04] LABS: BASOPHILS # (AUTO) 0.06 K/uL (0.00-0.20); BASOPHILS % (AUTO) 0.8 % (0.0-5.0); EOSINOPHILS # (AUTO) 0.17 K/uL (0.00-0.70); EOSINOPHILS % (AUTO) 2.3 % (0.0-8.0); HEMATOCRIT 32.5 % (42-54); LYMPHOCYTES # (AUTO) 1.7 K/uL (1.0-4.8); LYMPHOCYTES % (AUTO) 23.5 % (21.0-51.0); MEAN CORPUSCULAR HEMOGLOBIN 31.2 pg (27.0-33.0); MEAN CORPUSCULAR HGB CONC 31.7 g/dL (32.0-36.0); MEAN CORPUSCULAR VOLUME 98.5 fL (79-99); MONOCYTES % (AUTO) 13.1 % (3.0-13.0); NEUTROPHILS # (AUTO) 4.3 K/uL (1.8-7.7); NEUTROPHILS % (AUTO) 58.9 % (40.0-77.0); PLATELET COUNT (AUTO) 190 K/uL (130-400); WHITE BLOOD COUNT (AUTO) 7.3 K/uL (4.8-10.8)
[2023-09-03 21:21] LABS: APPEARANCE,URINE CLEAR (CLEAR); BILIRUBIN,URINE NEGATIVE (NEGATIVE); COLOR,URINE LIGHT-YELLOW (YELLOW); GLUCOSE, URINE (UA) NEGATIVE (NEGATIVE); KETONES,URINE NEGATIVE (NEGATIVE); LEUKOCYTE ESTERASE ,URINE 25 Leu/uL (NEGATIVE); NITRATE,URINE NEGATIVE (NEGATIVE); OCCULT BLOOD,URINE NEGATIVE (NEGATIVE); PROTEIN,URINE NEGATIVE (NEGATIVE); UROBILINOGEN,URINE 0.2 mg/dL (0.2-1.0)
[2023-09-03 21:26] LABS: ADD UA MICROSCOPIC YES
[2023-09-03 21:26] LABS: B-TYPE NATRIURETIC PEPTIDE 61 pg/mL (0-100)
[2023-09-03 21:28] LABS: RBC,URINE 0-1 /HPF (0-1); SQUAMOUS EPITHELIAL CELL,UR RARE /HPF (0-2)
[2023-09-03 21:35] LABS: CREATININE 1.5 mg/dL (0.5-1.3); POTASSIUM 4.1 mmol/L (3.5-5.1)
[2023-09-03 21:40] LABS: RAPID GROUP A STREP negative (NEGATIVE)
[2023-09-03 21:42] LABS: SARS-CoV-2, RNA, NAAT NEGATIVE SARS CoV-2 (NEGATIVE)
[2023-09-03 21:45] LABS: INFLUENZA TYPE A Negative For Type A (NEGATIVE); INFLUENZA TYPE B Negative For Type B (NEGATIVE)
[2023-09-03 21:59] LABS: BILIRUBIN,TOTAL 0.2 mg/dL (0.2-1.0)
[2023-09-03 22:01] LABS: ALBUMIN 3.2 g/dL (3.5-5.0); TOTAL PROTEIN, SERUM 7.2 g/dL (6.0-8.3)
[2023-09-08] MEDS ORDERED: ALBU2.5V2 IH (22:09)
[2023-09-08] MEDS ORDERED: TIOT4MIS2 IH (22:09)
[2023-09-08] MEDS ORDERED: OMEP40CA21 PO (22:09)
[2023-09-08] MEDS ORDERED: MAGN400T25 PO (22:09)
[2023-09-08] MEDS ORDERED: DIVA500T69 PO (22:09)
[2023-09-08] MEDS ORDERED: CHOL100034 PO (22:09)
[2023-09-08] MEDS ORDERED: CARB-305 OP (22:09)
[2023-09-08] MEDS ORDERED: ROSU40TA21 PO (22:09)
[2023-09-08] MEDS ORDERED: LINA290C PO (22:09)
[2023-09-08] MEDS ORDERED: SPIR25TA6 PO (22:09)
[2023-09-08] MEDS ORDERED: TORS20TA4 PO (22:09)
[2023-09-08] MEDS ORDERED: COLC0.6T73 PO (22:09)
[2023-09-08] MEDS ORDERED: SEMA0.258 SQ (22:09)
[2023-09-08] MEDS ORDERED: ONDA4TAB10 PO (22:09)
[2023-09-08] MEDS ORDERED: FERR324T4 PO (22:09)
[2023-09-08] MEDS ORDERED: CYAN-106 PO (22:09)
[2023-09-08] MEDS ORDERED: VARE0.5T6 PO (22:09)
[2023-09-08] MEDS ORDERED: PARO40TA72 PO (22:09)
[2023-09-08] MEDS ORDERED: OXYC10TA48 PO (22:09)
[2023-09-08] MEDS ORDERED: TAMS-1 PO (22:09)
[2023-09-08] MEDS ORDERED: NICO-776 TD (22:09)
[2023-09-08] MEDS ORDERED: BUDE10.26 IH (22:09)
[2023-09-08] MEDS ORDERED: NICO4GUM35 BC (22:09)
[2023-09-08] MEDS ORDERED: NALO4SPR3 NS (22:09)
[2023-09-08] MEDS ORDERED: BRIM5DRO5 OU (22:09)
[2023-09-08] MEDS ORDERED: METO2.5T2 PO (22:09)
[2023-09-08] MEDS ORDERED: GABA300C PO (22:09)
[2023-09-08] MEDS ORDERED: POTA-202 PO (22:09)
== END 2023-09-04 01:19 | disposition left against medical advice (07) ==
LOC: EDH 20:29
DX: J44.9 Chronic obstructive pulmonary disease, unspecified (principal); Z53.21 Procedure and treatment not carried out due to patient leaving prior to being seen by health care provider; Z20.822 Contact with and (suspected) exposure to COVID-19
CPT/HCPCS: 36415; 71045; 80053; 81001; 82550; 83880; 84484; 85025; 87420; 87635; 87804; 87880; 93005; 99281

== ENCOUNTER 2023-11-05 20:51 | Observation (INO) | payer OTHER ==
[~2023-11-05] VITALS: Ht 177.8 cm; Wt 129.1 kg
[~2023-11-05 20:51] MED LIST changes: -BRIM5DRO5 OP; +BRIM5DRO5 OU; +CARB-305 OP; -CARB1DRO40 OP; -CHOL-34 PO; +COLC0.6T73 PO; +CYAN-106 PO; -DIVA500T52 PO; +DIVA500T69 PO; +FERR324T4 PO; -FERS325 PO; -GABA-529 PO; +GABA300C PO; -GUAI100S13 PO; +LURA40TA4 PO; +NICO4GUM35 BC; +POTA-202 PO; -POTA-79 PO; -ROSU20TA73 PO; +ROSU40TA70 PO; +TAMS-1 PO; +TIOT4MIS2 IH; +TORS20TA4 PO
[2023-11-05] MEDS: PANTOPRAZOLE 40 MG/VIAL IVP ONE (21:19)
[2023-11-05] MEDS: ONDANSETRON 4MG INJ IVP ONE (21:19)
[2023-11-05 21:32] LABS: BASOPHILS # (AUTO) 0.07 K/uL (0.00-0.20); BASOPHILS % (AUTO) 0.6 % (0.0-5.0); EOSINOPHILS # (AUTO) 0.16 K/uL (0.00-0.70); EOSINOPHILS % (AUTO) 1.4 % (0.0-8.0); HEMATOCRIT 31.8 % (42-54); IMMATURE GRANULOCYTE ABSOLUTE 0.21 K/uL (0-1); LYMPHOCYTES # (AUTO) 1.6 K/uL (1.0-4.8); LYMPHOCYTES % (AUTO) 13.8 % (21.0-51.0); MEAN CORPUSCULAR HGB CONC 32.7 g/dL (32.0-36.0); MEAN CORPUSCULAR VOLUME 94.9 fL (79-99); MONOCYTES # (AUTO) 1.7 K/uL (0.1-1.0); MONOCYTES % (AUTO) 14.7 % (3.0-13.0); NEUTROPHILS # (AUTO) 7.8 K/uL (1.8-7.7); NEUTROPHILS % (AUTO) 67.7 % (40.0-77.0); PLATELET COUNT (AUTO) 353 K/uL (130-400); RED BLOOD CELL COUNT(AUTO) 3.35 MIL/uL (4.50-6.20); RED CELL DISTRIBUTION WIDTH 14.3 % (11.0-15.5); WHITE BLOOD COUNT (AUTO) 11.5 K/uL (4.8-10.8)
[2023-11-05 21:34] LABS: CREATININE 1.5 mg/dL (0.5-1.3); POTASSIUM 4.7 mmol/L (3.5-5.1)
[2023-11-05 21:41] LABS: ADD UA MICROSCOPIC YES; APPEARANCE,URINE CLEAR (CLEAR); BILIRUBIN,URINE NEGATIVE (NEGATIVE); COLOR,URINE COLORLESS (YELLOW); GLUCOSE, URINE (UA) >=1000 mg/dL (NEGATIVE); KETONES,URINE NEGATIVE (NEGATIVE); LEUKOCYTE ESTERASE ,URINE NEGATIVE Leu/uL (NEGATIVE); NITRATE,URINE NEGATIVE (NEGATIVE); OCCULT BLOOD,URINE NEGATIVE (NEGATIVE); PH,URINE 6.5 (5.0-8.0); PROTEIN,URINE NEGATIVE (NEGATIVE); UROBILINOGEN,URINE 0.2 mg/dL (0.2-1.0)
[2023-11-05 21:42] LABS: RBC,URINE 0-1 /HPF (0-1); WBC,URINE 0-1 /HPF (0-1)
[2023-11-05] MEDS: LACTULOSE 20 GM/30 ML UDCUP PO ONE (21:59)
[2023-11-05] MEDS ORDERED: ZOLPIDEM TARTRATE 5 MG TAB PO PRN (22:30)
[2023-11-05] MEDS ORDERED: NITROGLYCERIN 0.4 MG SL TAB SL PRN (22:30)
[2023-11-05] MEDS ORDERED: MAGNESIUM 2GM PREMIX 50ML 50 ML IV PRN (22:30)
[2023-11-05] MEDS ORDERED: LACTULOSE 20 GM/30 ML UDCUP PO PRN ×2 (22:30)
[2023-11-05] MEDS ORDERED: ONDANSETRON 4MG INJ IV PRN (22:30)
[2023-11-05] MEDS ORDERED: DiphenhydrAMINE HCL 50 MG/ML VIAL IV PRN (22:30)
[2023-11-05] MEDS ORDERED: GLUCAGON 1MG KIT 1 MG ML IM PRN (22:30)
[2023-11-05] MEDS ORDERED: GUAIFENESIN-DM 200/20 MG 10 ML PO PRN (22:30)
[2023-11-05] MEDS ORDERED: HYDRALAZINE 20MG/ML VIAL IV PRN (22:30)
[2023-11-05] MEDS ORDERED: DEXTROSE 50%-WATER 50 ML DISP.SYRIN IV PRN (22:30)
[2023-11-05] MEDS ORDERED: ACETAMINOPHEN 325 MG TAB PO PRN ×2 (22:30)
[2023-11-05] MEDS: 0.9%NACL 1000ML 1,000 ML IV SCH (22:53)
[2023-11-05] MEDS ORDERED: CEFTRIAXONE 1G VIAL ONE (22:54)
[2023-11-05] MEDS: CEFTRIAXONE 1G VIAL 1 GM in 0.9%NACL 50ML 50 ML IV SCH (22:55)
[2023-11-06] MEDS: TRAMADOL HCL 50 MG TABLET PO PRN (00:58)
[2023-11-06 01:05] VITALS: BP 140/80; PULSE 96; RESP 19
[2023-11-06] MEDS: MAG/ALUM/SIMETH 30 ML UDCUP PO PRN (01:38)
[2023-11-06 02:00] VITALS: O2SAT 96
[2023-11-06] MEDS ORDERED: LACT10SO5 PO (02:10)
[2023-11-06] MEDS ORDERED: EMPA25TA PO (02:10)
[2023-11-06] MEDS ORDERED: OMEP40CA21 PO (02:10)
[2023-11-06] MEDS ORDERED: GUAI100S13 PO (02:10)
[2023-11-06] MEDS ORDERED: CHOL1CRY2 MC (02:10)
[2023-11-06] MEDS ORDERED: POLY17PO52 PO (02:10)
[2023-11-06 04:48] VITALS: BP 156/69; PULSE 92; RESP 19
[2023-11-06] MEDS ORDERED: COLCHICINE 0.6 MG TABLET PO PRN (05:30)
[2023-11-06] MEDS ORDERED: GUAIFENESIN SUGAR-FREE 100 MG/5 ML UDCUP PO PRN (05:30)
[2023-11-06 05:53] LABS: BASOPHILS # (AUTO) 0.06 K/uL (0.00-0.20); BASOPHILS % (AUTO) 0.5 % (0.0-5.0); EOSINOPHILS # (AUTO) 0.16 K/uL (0.00-0.70); EOSINOPHILS % (AUTO) 1.2 % (0.0-8.0); IMMATURE GRANULOCYTE ABSOLUTE 0.21 K/uL (0-1); LYMPHOCYTES # (AUTO) 1.8 K/uL (1.0-4.8); LYMPHOCYTES % (AUTO) 13.5 % (21.0-51.0); MEAN CORPUSCULAR HGB CONC 32.6 g/dL (32.0-36.0); MEAN CORPUSCULAR VOLUME 98.1 fL (79-99); MONOCYTES # (AUTO) 2.5 K/uL (0.1-1.0); MONOCYTES % (AUTO) 18.9 % (3.0-13.0); NEUTROPHILS # (AUTO) 8.3 K/uL (1.8-7.7); NEUTROPHILS % (AUTO) 64.3 % (40.0-77.0); PLATELET COUNT (AUTO) 308 K/uL (130-400); RED BLOOD CELL COUNT(AUTO) 3.16 MIL/uL (4.50-6.20); RED CELL DISTRIBUTION WIDTH 14.4 % (11.0-15.5); WHITE BLOOD COUNT (AUTO) 12.9 K/uL (4.8-10.8)
[2023-11-06] MEDS: BUDESONIDE 0.25 MG/2 ML INH IH SCH (06:00)
[2023-11-06 06:05] LABS: INFLUENZA TYPE A Negative For Type A (NEGATIVE); INFLUENZA TYPE B Negative For Type B (NEGATIVE)
[2023-11-06 06:08] LABS: HEMOGLOBIN A1C 6.5 % (4.0-6.0)
[2023-11-06 06:13] LABS: ALBUMIN 2.8 g/dL (3.5-5.0); BILIRUBIN,DIRECT 0.1 mg/dL (0.0-0.3); BILIRUBIN,TOTAL 0.4 mg/dL (0.2-1.0); CREATININE 1.5 mg/dL (0.5-1.3); MAGNESIUM 1.7 mg/dL (1.80-2.40); POTASSIUM 3.4 mmol/L (3.5-5.1); TOTAL PROTEIN, SERUM 7.3 g/dL (6.0-8.3)
[2023-11-06] MEDS: INSULIN HUMULIN R 100 UNIT/ML 3ML SQ SCH (06:29)
[2023-11-06] MEDS ORDERED: FENOFIBRATE NANOCRYSTALLIZED 48 MG TAB PO SCH (09:00)
[2023-11-06] MEDS ORDERED: TORSEMIDE 20 MG TAB PO SCH (09:00)
[2023-11-06] MEDS ORDERED: NON-FORMULARY MEDICATION 1 EACH (Omeprazole 40 MG) PO SCH (09:00)
[2023-11-06] MEDS ORDERED: POLYETHYLENE GLYCOL 3350 17 GM POWD.PACK PO SCH (09:00)
[2023-11-06] MEDS ORDERED: CYANOCOBALAMIN (VITAMIN B-12) 1,000 MCG TABLET PO SCH (09:00)
[2023-11-06] MEDS ORDERED: [UNRECOGNIZED DRUG - OTHER] OP SCH (09:00)
[2023-11-06] MEDS ORDERED: NON-FORMULARY MEDICATION 1 EACH (Folic Acid/Vitamin B Comp W-C (Nephro-Vite Tablet) 0.8 MG PO SCH (09:00)
[2023-11-06] MEDS ORDERED: GABAPENTIN 300 MG CAPSULE PO SCH (09:00)
[2023-11-06] MEDS ORDERED: FAMOTIDINE 20MG VIAL IV SCH (09:00)
[2023-11-06] MEDS ORDERED: BRIMONIDINE TARTRATE 0.2% 5 ML BOTTLE OU SCH (09:00)
[2023-11-06] MEDS ORDERED: NON-FORMULARY MEDICATION 1 EACH (Lactulose 20 GM) PO SCH (09:00)
[2023-11-06] MEDS ORDERED: TAMSULOSIN HCL 0.4 MG CAP.ER.24H PO SCH (09:00)
[2023-11-06] MEDS ORDERED: HEPARIN 5,000 UNIT VIAL SQ SCH (09:00)
[2023-11-06] MEDS ORDERED: ASPIRIN 81 MG EC TAB PO SCH (09:00)
[2023-11-06] MEDS ORDERED: FERROUS SULFATE 325 MG TABLET.DR PO SCH (09:00)
[2023-11-06] MEDS ORDERED: Vitamin D3 25 MCG PO SCH (09:00)
[2023-11-06] MEDS ORDERED: QUETIAPINE FUMARATE 600 MG PO SCH (21:00)
[2023-11-06] MEDS ORDERED: NON-FORMULARY MEDICATION 1 EACH (Rosuvastatin Calcium 20 MG) PO SCH (21:00)
[2023-11-06] MEDS ORDERED: PAROXETINE HCL 40 MG PO SCH (21:00)
[2023-11-06] MEDS ORDERED: LURASIDONE HCL 40 MG PO SCH (21:00)
[2023-11-06] MEDS ORDERED: DIVALPROEX SODIUM 1500 MG PO SCH (21:00)
== END 2023-11-06 06:49 | disposition left against medical advice (07) ==
LOC: EDH 20:51 → EDHIP 22:12 → 3DH 23:02
PROVIDERS: ADMIT Hospitalist; ATTEND Hospitalist
DX: R45.851 Suicidal ideations (principal); Z20.822 Contact with and (suspected) exposure to COVID-19; K74.60 Unspecified cirrhosis of liver; G93.41 Metabolic encephalopathy; G47.33 Obstructive sleep apnea (adult) (pediatric); J96.11 Chronic respiratory failure with hypoxia; J44.9 Chronic obstructive pulmonary disease, unspecified; R56.9 Unspecified convulsions; D50.9 Iron deficiency anemia, unspecified; E66.01 Morbid (severe) obesity due to excess calories; E11.649 Type 2 diabetes mellitus with hypoglycemia without coma; F20.9 Schizophrenia, unspecified; I13.0 Hypertensive heart and chronic kidney disease with heart failure and stage 1 through stage 4 chronic kidney disease, or unspecified chronic kidney disease; E11.22 Type 2 diabetes mellitus with diabetic chronic kidney disease; N18.30 Chronic kidney disease, stage 3 unspecified; I50.9 Heart failure, unspecified; K76.0 Fatty (change of) liver, not elsewhere classified; E11.40 Type 2 diabetes mellitus with diabetic neuropathy, unspecified; E11.51 Type 2 diabetes mellitus with diabetic peripheral angiopathy without gangrene; I73.9 Peripheral vascular disease, unspecified; E78.00 Pure hypercholesterolemia, unspecified; E89.0 Postprocedural hypothyroidism; F32.A Depression, unspecified; J10.1 Influenza due to other identified influenza virus with other respiratory manifestations; J43.9 Emphysema, unspecified; Z68.41 Body mass index [BMI] 40.0-44.9, adult; Z85.118 Personal history of other malignant neoplasm of bronchus and lung; Z86.73 Personal history of transient ischemic attack (TIA), and cerebral infarction without residual deficits; Z86.79 Personal history of other diseases of the circulatory system; Z87.01 Personal history of pneumonia (recurrent); Z87.891 Personal history of nicotine dependence; Z99.81 Dependence on supplemental oxygen; Z98.890 Other specified postprocedural states; Z88.2 Allergy status to sulfonamides
CPT/HCPCS: 96374; 96375; 82550 ×2; 84484; 80048; 82140 ×2; 83690; 85025 ×2; 81001; 36415 ×2; 71045; 99291; 80164; 83036; 80076; 83735; 80053; 83880; 87804 ×2; 83605; 87426; 84145; G0378 ×9; J7030; J0696 ×2; J2405; C9113

== ENCOUNTER 2023-12-28 06:44 | Emergency (ER) | payer OTHER ==
[~2023-12-28 06:44] MED LIST changes: +CHOL1CRY2 MC; +EMPA25TA PO; +GUAI100S13 PO; +LACT10SO5 PO; +OMEP40CA21 PO; +POLY17PO52 PO; -TIOT4MIS2 IH
[2023-12-28] MEDS: KETOROLAC 30MG VIAL (30MG/ML) IM ONE (07:11)
[2023-12-28] MEDS: ORPHENADRINE 60MG/2ML IM ONE (07:11)
[2023-12-28] MEDS ORDERED: PRED20TA3 PO (09:12)
[2023-12-28] MEDS: SOLU-MEDROL 125MG VIAL IM ONE (13:32)
[2023-12-28] MEDS: MORPHINE 2 MG SYG IM ONE (13:32)
[2023-12-28] MEDS: COLCHICINE 0.6 MG TABLET PO SCH (13:45)
[2023-12-28] MEDS ORDERED: COLC0.6T73 PO (16:49)
[2023-12-28 17:12] VITALS: BP 118/78; PULSE 80; RESP 20; O2SAT 96
== END 2023-12-28 17:17 | disposition home or self-care (01) ==
LOC: EDH 06:44
DX: G89.29 Other chronic pain (principal); M10.9 Gout, unspecified; M79.671 Pain in right foot; M79.672 Pain in left foot; I11.0 Hypertensive heart disease with heart failure; I50.9 Heart failure, unspecified; E11.9 Type 2 diabetes mellitus without complications; E78.00 Pure hypercholesterolemia, unspecified; J43.9 Emphysema, unspecified; G47.30 Sleep apnea, unspecified; F17.200 Nicotine dependence, unspecified, uncomplicated; Z88.2 Allergy status to sulfonamides; Z79.82 Long term (current) use of aspirin; Z79.84 Long term (current) use of oral hypoglycemic drugs; Z79.899 Other long term (current) drug therapy; Z98.890 Other specified postprocedural states
CPT/HCPCS: 99284; 82948; 73630; 96372 ×4; J2270; J2919; J1885; J2360